=== PATIENT | male | born 1990 | race Caucasian/White ===

== ENCOUNTER 2020-04-11 17:48 | Emergency (ER) | payer OTHER, SELFPAY ==
[2020-04-11 18:13] VITALS: BP 122/87; PULSE 82; RESP 16; TEMP 37.4; O2SAT 99
[2020-04-11 18:39] VITALS: BP 122/87; PULSE 82; RESP 18; TEMP 37.4; O2SAT 99; BMI 23.7
--- NOTE | 2020-04-11 18:59 | ED.URI ---
HPI - URI/Sore Throat General Chief Complaint: Upper Respiratory Symptoms Stated Complaint: covid symptoms Time Seen by Provider: 04/11/20 18:55 Source: patient Mode of arrival: ambulatory Limitations: no limitations History of Present Illness HPI Narrative: 29 yo male with no sig past med hx c/o a couple weeks of headaches and nausea, 2 days of n/v, body sweats, sob, dizziness. denies fever, cough, chills. 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 Has not been eating much, too nauseus but is drinking Related Data Allergies Allergy/AdvReac Type Severity Reaction Status Date / Time No Known Allergies Allergy Verified 04/11/20 18:38 Review of Systems Review of Systems: Yes all other systems are reviewed and are negative [facility] Past Medical History Attestation statement: The following information was validated with the patient. Social History Social History (Updated 04/11/20 @ 19:02 by KUSH Patino) Smoking Status: Current every day smoker Packs Per Day: 1 Cigarettes Per Day: 20.0 Years Smoked: 11 Smoked in Last 30 Days: Yes Advance Directives: No Advance Directives Information Provided: No Physical Exam Vital Signs: Vital Signs: Vital Signs Temp Pulse Resp BP Pulse Ox 04/11/20 18:39 99.4 F 82 18 122/87 99 04/11/20 18:13 99.4 F 82 16 122/87 99 Body Mass Index 23.7 Const: General: cooperative, no acute distress and diaphoretic Nutritional Appearance: average body habitus Orientation/consciousness: patient oriented x3 Eyes: General: appearance normal, both eyes and all related structures Neck: Neck: Yes normal visual inspection, Yes full ROM, Yes no meningeal signs and Yes supple Resp: Effort & Inspection: normal respiratory effort and able to speak in complete sentences Auscultation: clear to auscultation bilaterally Cardio: Rate: regular rate Rhythm: regular rhythm Heart sounds: S1 normal heart sound present and S2 normal heart sound present Skin: General skin exam: no rashes or lesions noted Neuro: General: patient oriented x3 and no meningeal signs Extrem: General: Yes normal to inspection MDM - URI/Sore Throat Imaging Data Chest x-ray: Attestation: I personally reviewed and interpreted this imaging study as follows: My impression: Negative for acute disease. Radiologist's impression: No evidence for acute disease. Discharge Plan Discharge Clinical Impression: Acute viral syndrome Patient Disposition: Home, Self-Care Instructions: Dehydration (ED), COVID-19 (Coronavirus Disease 2019) (ED) Stand Alone Forms: Work/School Release
--- NOTE | 2020-04-11 19:04 | XR_ITS ---
EXAMINATION: CHEST 2 VIEWS CLINICAL INFORMATION: Shortness of breath. COMPARISON: None. TECHNIQUE: PA and lateral views of the chest were obtained. FINDINGS: The cardiac silhouette is not enlarged. The mediastinal and hilar contours are unremarkable. There are neither pleural effusions nor pneumothoraces. There are no consolidations. The osseous structures are unremarkable. XR/XR chest 2V IMPRESSION: No evidence for acute disease.
== END 2020-04-11 20:18 | disposition home or self-care (01) ==
PROVIDERS: Physician Assistant; Emergency Provider Emergency Medicine; PCP Family Medicine
DX: B34.9 Viral infection, unspecified (principal); J06.9 Acute upper respiratory infection, unspecified; R51.9 Headache, unspecified; F17.200 Nicotine dependence, unspecified, uncomplicated; Z71.6 Tobacco abuse counseling; Z20.828 Contact with and (suspected) exposure to other viral communicable diseases
CPT/HCPCS: 71046; 87635; 99284

== ENCOUNTER 2020-08-15 08:39 | Emergency (ER) | payer OTHER, SELFPAY ==
[2020-08-15] VITALS (10 sets, daily range): BP systolic 85–110; BP diastolic 40–67; PULSE 41–82; RESP 16; TEMP 36.8; O2SAT 98; BMI 23.7
--- NOTE | 2020-08-15 | ECG_ITS ---
Test Reason : ROBI Blood Pressure : / mmHG Vent. Rate : 064 BPM Atrial Rate : 064 BPM P-R Int : 114 ms QRS Dur : 090 ms QT Int : 472 ms P-R-T Axes : 029 -50 -14 degrees QTc Int : 486 ms Normal sinus rhythm Left anterior fascicular block Prolonged QT Abnormal ECG When compared with ECG of 15-AUG-2020 09:38, Incomplete right bundle branch block is no longer Present QT has lengthened Referred By: Kiara Heck Electronically Signed By:SHAHANA ANGELA MD
--- NOTE | ~2020-08-15 | XR_ITS ---
EXAMINATION: XR CHEST CLINICAL INFORMATION: Dyspnea on exertion COMPARISON: 04/11/2020 TECHNIQUE: Frontal view of the chest was obtained. FINDINGS: The cardiomediastinal silhouette is within normal limits. The lungs are well expanded. There is no focal consolidation, edema, or effusion. Mild bronchial wall thickening in the right lower lobe. No pneumothorax. No acute osseous abnormality. XR/XR chest 1V IMPRESSION: Mild bronchial wall thickening in the right lower lobe, which could reflect infectious or inflammatory process. No confluent airspace disease.
--- NOTE | 2020-08-15 09:11 | ECG_ITS ---
Test Reason : NEAR SYNCOPE Blood Pressure : / mmHG Vent. Rate : 060 BPM Atrial Rate : 060 BPM P-R Int : 114 ms QRS Dur : 090 ms QT Int : 406 ms P-R-T Axes : 051 -58 -11 degrees QTc Int : 406 ms Normal sinus rhythm with sinus arrhythmia Left anterior fascicular block Abnormal ECG When compared with ECG of 22-OCT-2019 19:32, No significant change was found Referred By: Kiara Heck Electronically Signed By:SHAHANA ANGELA MD
--- NOTE | 2020-08-15 09:25 | ED.SYNCOPE ---
HPI - Syncope General Chief Complaint: Syncope Stated Complaint: passing out frequently Time Seen by Provider: 08/15/20 09:10 Source: patient Mode of arrival: ambulatory Limitations: no limitations History of Present Illness HPI narrative: 30 y/o male with history of anxiety/depression, hx anemia requiring transfusion 10 years ago, hx substance abuse on Methadone presents to the ED with lightheadedness and feeling like he is going to pass out the last 2 mornings. He states that both mornings after coming inside from smoking a cigarette he had black tunnel vision and felt very faint. He did not actually lose consciousness. He states when he changes position too quickly he feels very lightheaded. He stayed on the couch most of the day yesterday because he wasn't feeling well. He didn't drink or eat much. He denies fever, chills, N/V/D, abdominal pain, headache, neck pain, chest pain. He is occasionally SOB with exertion. No cough, melena or BRBPR. He recently started back up on Lexapro 10 mg daily 4 days ago. MD complaint: felt faint and almost passed out Onset (ago): day(s) (1) -: minutes(s) Prodromal symptoms: vision changes, lightheaded, heart racing and shortness of breath Witnessed: Yes - by Bystander Context: during exertion, standing up and new medication Injuries sustained associated with event: none Current symptoms: lightheaded History: previous syncopal episode Treatments prior to arrival: none Related Data Allergies Allergy/AdvReac Type Severity Reaction Status Date / Time No Known Allergies Allergy Verified 04/11/20 18:38 Review of Systems Review of Systems: Constitutional: No Fever, No Chills ENT/Mouth: No sore throat, No Rhinorrhea, No Swallowing Difficulty Eyes: No Eye Pain, No Swelling, No Redness Cardiovascular: No Chest Pain, + SOB, No Orthopnea, No Edema Respiratory: No Cough, No Sputum, No Wheezing, No dyspnea Gastrointestinal: No Nausea, No Vomiting, No Diarrhea, No abdominal Pain, No Hematochezia, No Melena Genitourinary: No Dysuria, No Urinary Frequency, No Hematuria Musculoskeletal: No joint pain, No Myalgias Skin: No Skin Lesions, No rash Neuro: + Weakness, No Numbness, + Dizziness, No Headache Psych: + Anxiety/Panic, + Depression Heme/Lymph: No Bruising, No Lymphadenopathy Endocrine: No Polyuria, No Polydipsia [facility] Past Medical History Attestation statement: The following information was validated with the patient. Medical History (Updated 08/15/20 @ 15:59 by KUSH Lizama) Anemia Anxiety Depression Social History Social History (Updated 04/11/20 @ 19:02 by KUSH Patino) Alcohol intake: never Smoking Status: Current every day smoker Packs Per Day: 1 Cigarettes Per Day: 20.0 Years Smoked: 11 Use of substances other than those prescribed or required for medical reasons: No Advance Directives: Yes Advance Directives Information Provided: No Advance Directives on File: No Physical Exam Vital Signs: Vital Signs: Last Vital Signs Temp 98.2 F 08/15/20 08:44 Pulse 70 08/15/20 14:03 Resp 16 08/15/20 14:03 BP 98/56 L 08/15/20 13:54 Pulse Ox 98 08/15/20 12:10 Body Mass Index 23.7 Appearance: Alert. Oriented X3. No acute distress. Eyes: Pupils equal, round and reactive to light. ENT: Pharynx normal. Neck: Normal inspection. Neck supple. CVS: Normal heart rate and rhythm. Pulses normal. Respiratory: No respiratory distress. Breath sounds normal. Abdomen: Soft and nontender. +BS x4 Skin: Skin warm and dry. Normal skin color. Normal skin turgor. No rashes. Extremities: No lower extremity edema. Neuro: Oriented X 3. No motor deficit. No sensory deficit. Course Course Course Narrative: 30 y/o male presenting with pre-syncope and lightheadedness in the setting of known anxiety and restarting Lexapro 4 days ago. He appears well on exam. Non-focal. Concern for possible recurrent anemia although no signs of blood loss. Suspect anxiety a contributing factor. Will get labs, EKG, orthostatic VS. Reevaluation(s) Reevaluation #1: Orthostatic VS are positive with drop in BP to 85/49 from 97/54 and HR increase from 48 to 82 from laying to standing. Afebrile, doubt infectious etiology but will check lactic acid and blood cultures. Plan for repeat orthostatic VS after 2L IVF. Reevaluation #2: BP in the 80's after 2L NS, with HR as low as 38. He reports lightheadedness. Will atropine for symptomatic bradycardia. He denies recent drug use, not on clonidine at home. Aside from Lexapro he states he has been on Methadone for the last 5 years, stable dose of 86 mg for the last 1 year. His bradycardia and hypotension could be due to combination of methadone and lexapro. Will monitor closely and see if he responds to atropine. 3rd liter IVF ordered. Reevaluation #3: HR 70's after atropine. Orthostatic VS now negative but patient remains lightheaded and not feeling well. TT Dr. Forrester recommending low dose of midodrine and reassessing. May be able to be discharged home if his symptoms improve. 4pm: BP remains stable 90-100 systolic with HR 60-70's after low dose midodrine. His dizziness and lightheadedness have resolved. He would like to be discharged home. He is going to have his partner sampler pickup him and he will stay with her tonight. He states that if he has recurrent symptoms he knows he needs to return to the ER. He agrees to follow up with his PCP Wednesday and Cardiology next week. Expressed understanding to stop taking Lexapro. He clinically appears significantly improved and he is stable for discharge home. Consultations Consultation #1: Dr. Forrester Cardiology MDM - Syncope Differential Diagnosis Differential diagnosis: Likely syncope due to orthostatic hypotension, vasovagal syncope, complete atrioventricular block and dehydration Medical Records Attestation: I reviewed the patient's medical records. Lab Data Attestation: I reviewed the patient's lab results. Result diagrams: 08/15/20 09:24 08/15/20 09:24 Labs: Lab Results 08/15/20 08/15/20 08/15/20 Range/Units 09:24 09:24 09:24 WBC 7.3 (4.8-10.8) X10*3/uL RBC 5.14 (4.60-5.80) X10*6/uL Hgb 14.9 (14.0-18.0) g/dl Hct 44.7 (42-52) % MCV 87.0 (80-98) fL MCH 29.0 (27.0-33.0) pg MCHC 33.3 (31.0-36.0) g/dl RDW 12.5 (11.0-16.0) % Plt Count 308 (160-400) X10*3/uL MPV 9.1 L (9.4-12.4) fL Immature Gran % (Auto) 0.3 (0.0-0.4) % Neut % (Auto) 79.3 H (45-73) % Lymph % (Auto) 13.2 L (20-40) % [place] % (Auto) 6.6 (2-11) % Eos % (Auto) 0.3 (0-4) % Baso % (Auto) 0.3 (0-2) % Lymph # (Auto) 1.0 L (1.2-4.9) X10*3/uL [place] # (Auto) 0.5 (0.1-1.2) X10*3/uL Eos # (Auto) 0.0 (0.0-0.4) X10*3/uL Baso # (Auto) 0.0 (0.0-0.2) X10*3/uL Abs Immat Gran (auto) 0.02 (0.00-0.03) X10*3/uL Absolute Neuts (auto) 5.8 (2.0-8.3) X10*3/uL Absolute Nucleated RBC 0.000 (0.0-0.012) X10*3/uL Nucleated RBC % (auto) 0.0 (0.0-0.2) /100WBC Hold Blue Top Sodium 138 (135-145) mmol/L Potassium 4.1 (3.3-5.1) mmol/L Chloride 103 (96-108) mmol/L Carbon Dioxide 24 (22-29) mmol/L Anion Gap 15 (12-20) BUN 20 H (9-16) mg/dL Creatinine 1.25 (0.5-1.4) mg/dL Estim Creat Clear Calc 94.8 Estimated GFR > 60 Random Glucose 108 (60-115) mg/dL Lactic Acid (0.5-2.0) mmol/L Calcium 8.9 (8.4-10.2) mg/dL Magnesium 2.0 (1.6-2.6) mg/dL Total Bilirubin 0.5 (0.0-1.0) mg/dL Direct Bilirubin 0.2 (0.0-0.5) mg/dL AST 18 (5-37) U/L ALT 35 (0-40) U/L Alkaline Phosphatase 101 (39-117) U/L Troponin I High Sens (<3.5-35.0) ng/L Total Protein 6.8 (6.5-8.0) g/dL Albumin 4.4 (3.5-5.0) g/dL Coronavirus (PCR) NEGATIVE (Negative) Influenza Type A (PCR) NEGATIVE (Negative) Influenza Type B (PCR) NEGATIVE (Negative) RSV RNA Qual (PCR) NEGATIVE (Negative) 08/15/20 08/15/20 08/15/20 Range/Units 09:24 09:24 10:21 WBC (4.8-10.8) X10*3/uL RBC (4.60-5.80) X10*6/uL Hgb (14.0-18.0) g/dl Hct (42-52) % MCV (80-98) fL MCH (27.0-33.0) pg MCHC (31.0-36.0) g/dl RDW (11.0-16.0) % Plt Count (160-400) X10*3/uL MPV (9.4-12.4) fL Immature Gran % (Auto) (0.0-0.4) % Neut % (Auto) (45-73) % Lymph % (Auto) (20-40) % [place] % (Auto) (2-11) % Eos % (Auto) (0-4) % Baso % (Auto) (0-2) % Lymph # (Auto) (1.2-4.9) X10*3/uL [place] # (Auto) (0.1-1.2) X10*3/uL Eos # (Auto) (0.0-0.4) X10*3/uL Baso # (Auto) (0.0-0.2) X10*3/uL Abs Immat Gran (auto) (0.00-0.03) X10*3/uL Absolute Neuts (auto) (2.0-8.3) X10*3/uL Absolute Nucleated RBC (0.0-0.012) X10*3/uL Nucleated RBC % (auto) (0.0-0.2) /100WBC Hold Blue Top SEE NOTE Sodium (135-145) mmol/L Potassium (3.3-5.1) mmol/L Chloride (96-108) mmol/L Carbon Dioxide (22-29) mmol/L Anion Gap (12-20) BUN (9-16) mg/dL Creatinine (0.5-1.4) mg/dL Estim Creat Clear Calc Estimated GFR Random Glucose (60-115) mg/dL Lactic Acid 0.8 (0.5-2.0) mmol/L Calcium (8.4-10.2) mg/dL Magnesium (1.6-2.6) mg/dL Total Bilirubin (0.0-1.0) mg/dL Direct Bilirubin (0.0-0.5) mg/dL AST (5-37) U/L ALT (0-40) U/L Alkaline Phosphatase (39-117) U/L Troponin I High Sens < 3.5 (<3.5-35.0) ng/L Total Protein (6.5-8.0) g/dL Albumin (3.5-5.0) g/dL Coronavirus (PCR) (Negative) Influenza Type A (PCR) (Negative) Influenza Type B (PCR) (Negative) RSV RNA Qual (PCR) (Negative) ECG Data Attestation: I personally reviewed and interpreted this ECG as follows: ECG interpretation date: 08/15/20 ECG interpretation time: 09:36 Interpretation: #1: normal sinus rhythm, HR 60 bpm, normal OR interval, normal QTc, t-wave inversion in lead III, artifact present. #2: done at 9:38 am when bradycardic - sinus bradycardia, HR 47 bpm, normal OR interval, normal QTC, #3 done at 12:24 s/p atropine 0.5 x2 - normal sinus rhythm, HR 64, QTc increased to 186 ms, normal OR interval. Critical Care Time Critical Care Time Critical Care Time: Yes Total Critical Care Time: 45 Attestation: I attest to critical care time spent caring for this patient with symptomatic bradycardia and hypotension requiring ACLS intervention & frequent bedside monitoring of hemodynamic status. Discharge Plan Discharge Clinical Impression: Orthostatic hypotension, Symptomatic bradycardia Patient Disposition: Home, Self-Care Instructions: Dehydration (ED), Hypotension (ED), Bradycardia (ED) Additional Instructions: Rest and stay hydrated. You were given two different medications in the ER to help improve your heart rates with good effect. If you have recurrent lightheadedness or dizziness or any other concerning symptom call 911 or come back to the ER for further evaluation. Follow up with the Video Tape Editor within 1 week. Stop taking Lexapro. Follow up with your doctor on Wednesday as scheduled. Prescriptions: Discontinued escitalopram oxalate 10 mg tablet 10 mg PO DAILY RF: 0 Referrals: Chris Forrester MD [Physician] - 2 days (symptomatic bradycardia, orthostatic hypotension) Stand Alone Forms: Work/School Release
--- NOTE | 2020-08-15 09:35 | ECG_ITS ---
Test Reason : BRADYCARDIA Blood Pressure : / mmHG Vent. Rate : 047 BPM Atrial Rate : 047 BPM P-R Int : 144 ms QRS Dur : 092 ms QT Int : 462 ms P-R-T Axes : 033 -53 -15 degrees QTc Int : 408 ms Sinus bradycardia Incomplete right bundle branch block Left anterior fascicular block Abnormal ECG When compared with ECG of 15-AUG-2020 09:21, No significant change was found Referred By: Kiara Heck Electronically Signed By:SHAHANA ANGELA MD
[2020-08-15 09:36] LABS: MANUAL DIFF FLAG NO
--- NOTE | 2020-08-15 09:40 | PC.NURSE ---
episode of bradycardia noted. additional ekg obtained per pa order. pa aware of hypotension. 1l bolus hung of ns.
[2020-08-15 09:41] LABS: Basophils Percent Auto 0.3 % (0-2); Eosinophils Percent Auto 0.3 % (0-4); Hematocrit 44.7 % (42-52); Hemoglobin 14.9 g/dl (14.0-18.0); Imm Gran Abs Auto 0.02 X10*3/uL (0.00-0.03); Imm Gran Pct Auto 0.3 % (0.0-0.4); Lymphocytes Percent Auto 13.2 % (20-40); Mean Corpuscular HGB Conc 33.3 g/dl (31.0-36.0); Mean Platelet Volume 9.1 fL (9.4-12.4); Monocytes Absolute Auto 0.5 X10*3/uL (0.1-1.2); Monocytes Percent Auto 6.6 % (2-11); Neutrophils Absolute Auto 5.8 X10*3/uL (2.0-8.3); Neutrophils Percent Auto 79.3 % (45-73); Platelet Count 308 X10*3/uL (160-400); Red Blood Count 5.14 X10*6/uL (4.60-5.80); Red Cell Distribution Width 12.5 % (11.0-16.0); White Blood Count 7.3 X10*3/uL (4.8-10.8)
[2020-08-15] MEDS: 0.9 % Sodium Chloride 1,000 ML 999 ML IVCONT ×3 (09:42→12:18)
[2020-08-15 10:06] LABS: Alanine Aminotransferase 35 U/L (0-40); Albumin Level 4.4 g/dL (3.5-5.0); Alkaline Phosphatase 101 U/L (39-117); Anion Gap 15 (12-20); Aspartate Amino Transferase 18 U/L (5-37); Bilirubin Direct 0.2 mg/dL (0.0-0.5); Bilirubin Total 0.5 mg/dL (0.0-1.0); Blood Urea Nitrogen 20 mg/dL (9-16); Calcium 8.9 mg/dL (8.4-10.2); Carbon Dioxide 24 mmol/L (22-29); Chloride 103 mmol/L (96-108); Creatinine Clr Calc Pharmacy 94.8; Estimated Glomerular Filt Rate > 60; Glucose Random 108 mg/dL (60-115); Potassium 4.1 mmol/L (3.3-5.1); Sodium 138 mmol/L (135-145); Total Protein 6.8 g/dL (6.5-8.0)
[2020-08-15 10:09] LABS: Troponin-I High Sensitivity < 3.5 ng/L (<3.5-35.0)
[2020-08-15 10:53] LABS: Influenza A PCR NEGATIVE (Negative); Influenza B PCR NEGATIVE (Negative); Resp Syncy Virus RNA Qual PCR NEGATIVE (Negative); SARS COV2 PCR INHOUSE NEGATIVE (Negative)
[2020-08-15 11:02] LABS: Lactic Acid 0.8 mmol/L (0.5-2.0)
--- NOTE | 2020-08-15 12:13 | PC.NURSE ---
epsiode of bradycardia into the high 30s. pa aware.
[2020-08-15] MEDS: Atropine Sulfate 1 MG/ML VIAL 0.5 MG IVPUSH (12:18)
--- NOTE | 2020-08-15 12:25 | PC.NURSE ---
pa at bedside for admin of atropine. after two doses pt hr in the high 60s. ekg obtained.
[2020-08-15] MEDS: Magnesium Sulfate/D5W 1 GM/100 ML PIGGYBACK IV (12:46)
[2020-08-15] MEDS: Midodrine HCl 2.5 MG TABLET PO (13:54)
--- NOTE | 2020-08-15 15:41 | PC.NURSE ---
plan to dc home and f/u with cardio
--- NOTE | 2020-08-16 09:01 | PM.EVENT ---
Event Note Date of Service: 08/16/20 Event Note: Patient was discharged before we could see him today. Initial plan was to admit the patient
== END 2020-08-15 16:15 | disposition home or self-care (01) ==
PROVIDERS: Physician Assistant; Emergency Provider Emergency Medicine; PCP Family Medicine
DX: I95.1 Orthostatic hypotension (principal); R00.1 Bradycardia, unspecified; E86.0 Dehydration; Z20.822 Contact with and (suspected) exposure to COVID-19; F11.20 Opioid dependence, uncomplicated; D64.9 Anemia, unspecified; F41.9 Anxiety disorder, unspecified; F17.210 Nicotine dependence, cigarettes, uncomplicated
CPT/HCPCS: 0241U; 36415; 71045; 80048; 80076; 83605; 83735; 84484; 85025; 87040; 93005; 96361; 96365; 96374; 99285; J0461; J3475

== ENCOUNTER → 2020-08-27 11:33 | Outpatient (BNVA) | payer OTHER, SELFPAY | PROVIDERS: PCP Family Medicine; Visit Provider Nurse Practitioner Family | DX: R42 Dizziness and giddiness (principal); R00.1 Bradycardia, unspecified; F17.200 Nicotine dependence, unspecified, uncomplicated; Z71.6 Tobacco abuse counseling; Z79.899 Other long term (current) drug therapy | CPT/HCPCS: 99202 ==

== ENCOUNTER → 2020-09-18 13:30 | Outpatient (REF) | payer OTHER, SELFPAY ==
--- NOTE | 2020-09-18 14:00 | ECG_ITS ---
Hook-up date: 2020-09-18 13:47:00 Duration: 47:55:00 Test Indications: r01., r00.1 Medications: 47189 QRS complexes 11 Ventricular ectopics which represent <1 % of total QRS comp. 1 Supraventricular ectopics which represent <1 % of total QRS comp. * Paced QRS complexs which represent % of total QRS comp. VENTRICULAR ECTOPY 11 Isolated 0 Bigeminal Cycles 0 Couplets 0 Runs 0 Beats in Runs * Beats LONGEST at * BPM at :: -- * Beats FASTEST at * BPM at :: -- SUPRAVENTRICULAR ECTOPY 1 Isolated 0 Couplets 0 Runs 0 Beats in Runs * Beats LONGEST at * BPM at :: -- * Beats FASTEST at * BPM at :: -- HEART RATES 36 MIN at 02:34:17 2020-09-19 71 AVG 174 MAX at 10:33:02 2020-09-19 LONGEST RR 1.8640 secs at 02:36:23 2020-09-19 S-T LEVELS Channel 1 - 128 mm at 13:47:00 2020-09-18 - 128 mm at 13:47:00 2020-09-18 Channel 2 - 128 mm at 13:47:00 2020-09-18 - 128 mm at 13:47:00 2020-09-18 Channel 3 - 128 mm at 03:30:61 -- - 128 mm at 03:30:61 Underlying rhythm is sinus; Average ventricular rate 71/min; About 30% of the time, ventricular rate >100min; Very rare, isolated ventricular ectopy; No sustained arrhythmias; Some strips with inverted T waves - uncertain etiology; Patient did not return diary Referred By: Johana Maurer Overread By: EVAN MORRELL
== END ==
LOC: HO.CARD 13:30
PROVIDERS: Visit Provider Nurse Practitioner Family
DX: R01.0 Benign and innocent cardiac murmurs (principal); R00.1 Bradycardia, unspecified; R42 Dizziness and giddiness
CPT/HCPCS: 93225; 93226

== ENCOUNTER → 2020-10-02 14:57 | Outpatient (REF) | payer OTHER, SELFPAY ==
--- NOTE | 2020-10-02 15:12 | CA_ITS ---
Transthoracic Echocardiogram Patient (Last, First, Middle): Darius Ku E Gender: Male Date of : 1990 Age: 30 Procedure Date: 10/02/2020 Procedure Type: Transthoracic Echocardiogram Location: OP Height: 182.88 cm Weight: 77.11 kg BSA: 1.99 m2 Heart Rate: bpm BP: 110 / 56 mmHg Comb Machine Operator: BHARAT Referring MD: Johana Maurer CHANGE CONTROL SPECIALIST-C Symptoms: DIZZINESS GIDDINESS BRADYCARDIA Study Quality: Fair ECG Rhythm: Sinus Conclusions: - The left ventricular systolic function is normal. The visually estimated ejection fraction is between 55-60%. - No obvious valvular pathology seen on this study. Findings Left Ventricle Normal left ventricular cavity size. There is normal left ventricular wall thickness. The left ventricular systolic function is normal. The visually estimated ejection fraction is between 55-60%. There is no evidence of regional wall motion abnormalities. Diastolic function is normal for age. Right Ventricle Normal right ventricular cavity size and systolic function. Atria Both atria are normal in size. Aortic Valve There is a normal trileaflet aortic valve. There is no aortic valve stenosis. There is no aortic valve regurgitation. Mitral Valve The mitral valve appears normal. There is no mitral valve regurgitation. There is no mitral valve stenosis. Pulmonic Valve The pulmonic valve was not well visualized. Tricuspid Valve Normal tricuspid valve structure. There is trace tricuspid valve regurgitation. The pulmonary artery systolic pressure is normal. Great Vessels The aortic annulus, sinuses of valsalva, and asc aorta are normal in size. Venous The inferior vena cava is normal in size and collapses greater than 50% with inspiration. Pericardium/Pleural There is no evidence of pericardial effusion. Prior Study Comparison No prior study available for comparison. Recommendations, Care & Conclusions No obvious valvular pathology seen on this study. Measurements 2D Linear Measurements IVSd: 0.87 0.6-0.9/0.6-1.0 cm LVIDd: 4.95 3.9-5.3/4.2-5.9 cm LVIDd Index: 2.49 2.4-3.2/2.2-3.1 cm/m2 LVIDs: 3.20 2.0-3.6 cm LVPWd: 0.91 0.7-1.1 cm Ao Root: 3.40 2.1-3.5 cm LA Diam: 3.20 2.7-3.8/3.0-4.0 cm LAIDs Index: 1.61 1.5-2.3 cm/m2 LV Mass: 190.73 67-162/88-224 g LV Mass Index: 95.85 43-95/49-115 g/m2 LVOT Diam: 2.00 3.0+(-)1.3 cm 2D Systolic Function EF 4C: 56.20 >55% EF 2C: 65.40 >55% EF BiP: 60.60 >55% Mitral Valve MV Pk E: 0.53 MV PK A: 0.32 MV Decel Time: 512.00 E/A: 1.70 E'Lateral: 13.40 E'Medial: 9.28 E/E' Med: 5.80 E/E' Lat: 4.00 PHT: 150.00 MVA PHT: 1.47 Decel [place]: 1.04 Aortic Valve AoV Pk Garret: 1.12 AoV Mn Garret: 0.78 AoV VTI: 0.23 AoV Pk Grad: 5.00 Aov Mn Grad: 3.00 GALLO Cont.VTI: 2.88 LVOT LVOT Pk Garret: 1.05 LVOT Mn Garret: 0.68 LVOT VTI: 0.21 LVOT Pk Grad: 4.00 LVOT Mn Grad: 2.00 LVOT Diam: 2.00 LVOT Area: 3.14 Diastolic Function MV Pk E: 0.53 MV Pk A: 0.32 E/A: 1.70 E'Medial: 9.28 E/E' Med: 5.80 E' Laterial: 13.40 E/E' Lat: 4.00 Tricuspid Valve TR Pk Garret: 2.25 TR Pk Grad: 20.00 RA Press: 3.00 RVSP: 23.00 Great Vessels Aorta Ao Root-2D: 3.40 2.0-3.7 cm Ao Asc: 3.30 2.1-3.4 cm Updated in Other Vendor System with Status of Final Myron Adkins MD electronically signed on 10/03/2020 4:58:21 PM with status of Final
== END ==
LOC: HO.CARD 14:57
PROVIDERS: PCP Family Medicine; Visit Provider Nurse Practitioner Family
DX: R00.1 Bradycardia, unspecified (principal); R42 Dizziness and giddiness
CPT/HCPCS: 93306

== ENCOUNTER → 2020-10-08 10:02 | Outpatient (BNVA) | payer OTHER, SELFPAY | PROVIDERS: PCP Family Medicine; Visit Provider Nurse Practitioner Family | DX: R42 Dizziness and giddiness (principal); R00.1 Bradycardia, unspecified | CPT/HCPCS: 99212 ==

== ENCOUNTER → 2020-11-01 08:43 | Outpatient (BNVA) | payer OTHER, SELFPAY | PROVIDERS: PCP Family Medicine; Visit Provider Nurse Practitioner Family ==

== ENCOUNTER → 2020-12-02 14:02 | Outpatient (REF) | payer OTHER, SELFPAY ==
--- NOTE | 2020-12-02 14:10 | HM_ITS ---
REQUESTING PROVIDER: Johana Maurer NP INDICATION FOR THE TEST: Dizziness and bradycardia. INTERPRETATION: Patient was hooked up to cardiac event monitor from 12/02/2020 to 01/01/2021 for a total period of 30 days. The patient had baseline heart rate varying from 39 beats per minute to 130 beats per minute sinus rhythm. There were rare isolated PACs noted. The patient reported multiple events. Symptoms of shortness of breath and dizziness correlated either with sinus rhythm or sinus tachycardia. The patient 1 episode of dizziness correlated with sinus bradycardia at 52 beats per minute. The patient had other symptoms of racing and fluttering correlated with sinus tachycardia. There were no significant arrhythmias noted. CONCLUSION: 1. Baseline normal sinus rhythm with no significant arrhythmias. 2. Patient reported symptoms correlated with either sinus rhythm or sinus tachycardia. Chris Forrester MD NRS/MODL / [id number]
== END ==
LOC: HO.CARD 14:02
PROVIDERS: Visit Provider Nurse Practitioner Family
DX: R00.1 Bradycardia, unspecified (principal); R42 Dizziness and giddiness; R55 Syncope and collapse
CPT/HCPCS: 93270

== ENCOUNTER 2020-12-04 14:59 | Inpatient (IN) | payer OTHER, SELFPAY ==
[2020-12-04] VITALS (8 sets, daily range): BP systolic 71–161; BP diastolic 42–94; PULSE 35–94; RESP 10–19; TEMP 36.6–36.7; O2SAT 98–100; BMI 22.4
--- NOTE | ~2020-12-04 | XR_ITS ---
EXAMINATION: XR CHEST CLINICAL INFORMATION: Bradycardia COMPARISON: Chest 08/15/2020 TECHNIQUE: Frontal view of the chest was obtained. FINDINGS: No significant abnormality is noted involving the heart, lungs, mediastinum, bony thorax or soft tissues. XR/XR chest 1V IMPRESSION: Unremarkable chest exam.
--- NOTE | 2020-12-04 15:11 | ECG_ITS ---
Test Reason : CP Blood Pressure : / mmHG Vent. Rate : 038 BPM Atrial Rate : 038 BPM P-R Int : 144 ms QRS Dur : 098 ms QT Int : 460 ms P-R-T Axes : 049 -55 -08 degrees QTc Int : 365 ms Marked sinus bradycardia Left anterior fascicular block Nonspecific T wave abnormality Abnormal ECG When compared with ECG of 15-AUG-2020 12:24, Vent. rate has decreased BY 26 BPM QT has shortened Referred By: Kavita Clark Electronically Signed By:EVAN MORRELL
[2020-12-04] MEDS: Acetaminophen 325 MG TABLET 650 MG PO (15:46)
[2020-12-04] MEDS: 0.9 % Sodium Chloride 1,000 ML 999 ML IVCONT ×3 (15:46→17:51)
[2020-12-04] MEDS: Meclizine HCl 25 MG TABLET PO (15:47)
--- NOTE | 2020-12-04 15:54 | ED.ARRPALP ---
HPI - Arrhythmia/Palpitations General Chief Complaint: Arrhythmia/Palpitations Stated Complaint: chest pain Time Seen by Provider: 12/04/20 15:03 Source: patient Mode of arrival: ambulatory History of Present Illness HPI narrative: 30-year-old male with a past medical history of substance abuse now on methadone, anemia, anxiety, bradycardia, depression, orthostatic dizziness on Midodrine, presenting to the ED complaining positional dizziness, lightheadedness, generalized fatigue, mild headache x3 days. Admits to similar symptoms in the past with his bradycardia, reports compliance with his medications. Reports decreased p.o. intake, chest pain, and shortness of breath. States symptoms occur when going from sitting/lying to standing. Denies fever, chills, visual loss, abdominal pain, vomiting, diarrhea, LE edema, recent travel, sick contacts Related Data Home Medications Medication Instructions Recorded Confirmed methadone 10 mg/5 mL oral solution 86 mg PO DAILY ml 08/27/20 12/04/20 midodrine 2.5 mg PO TIDWM 12/04/20 12/04/20 Previous Rx's Medication Instructions Recorded blood pressure monitor #1 ea 11/01/20 Allergies Allergy/AdvReac Type Severity Reaction Status Date / Time No Known Allergies Allergy Verified 11/01/20 08:47 Review of Systems Review of Systems: Constitutional: No Fever, No Chills, + Fatigue, No Malaise ENT/Mouth: No Ear Pain, No Nasal Congestion, No sore throat Eyes: No Eye Pain, No Swelling, No Vision Changes Cardiovascular: + Chest Pain, + SOB, No Dyspnea on Exertion, +Palpitations Respiratory: No Cough, No Dyspnea Gastrointestinal: No Nausea, No Vomiting, No Diarrhea, No Constipation, No Abdominal pain Genitourinary: No Dysuria, No Urinary Frequency, No Hematuria Musculoskeletal: No joint pain, No Myalgias, No Joint Swelling Skin: No Skin Lesions, No rash Neuro: + Weakness, No Numbness, No Paresthesias, No Loss of Consciousness, + Lightheadedness, + Dizziness, + Headache Yes all other systems are reviewed and are negative Neurologic: Denies Abnormal speech present [facility] Past Medical History Attestation statement: The following information was validated with the patient. Medical History Anemia Anxiety Bradycardia Depression Orthostatic dizziness Family History Family History Father Afib Social History Social History Alcohol intake: never Cigarette Packs Per Day: 1 Cigarettes Per Day: 20.0 Years Smoked: 11 Advance Directives: No Advance Directives Information Provided: Yes Physical Exam Vital Signs: Vital Signs: Last Vital Signs Temp 97.8 F 12/04/20 18:19 Pulse 40 L 12/04/20 18:19 Resp 19 12/04/20 18:19 BP 109/68 12/04/20 18:19 Pulse Ox 99 12/04/20 18:19 Body Mass Index 22.4 Const: General: cooperative, healthy appearing and no acute distress Orientation/consciousness: patient oriented x3 Limitations: no limitations HENMT: Head: Yes normal to inspection Ears: hearing grossly normal bilaterally General nose exam: Normal external nose present Face and sinus: Yes normal facial exam Eyes: General: appearance normal, both eyes and all related structures EOM: EOMs intact bilaterally Neck: Neck: Yes normal visual inspection and Yes no meningeal signs Resp: Effort & Inspection: normal respiratory effort Auscultation: clear to auscultation bilaterally, no rales, no rhonchi and no wheezes Cardio: Rate: bradycardic Rhythm: regular rhythm Heart sounds: S1 normal heart sound present and S2 normal heart sound present GI: Inspection: Yes normal to inspection Palpation (GI): Soft to palpation, nontender, no guarding and not rigid Skin: Rashes: no rashes Wounds: no wounds Neuro: General: patient oriented x3, tone normal, moves all extremities, no meningeal signs, no focal motor deficits and CN's II-XI intact bilaterally Cognition (Neuro): normal cognition Speech: No Abnormal speech present Motor exam (neuro): 5/5 motor strength present throughout, Pronator motor function not present and no tremor noted Coordination: [id number] test normal and Romberg test negative Extrem: General: Yes normal to inspection, Yes no pedal edema and Yes no calf tenderness Course Course Course Narrative: XR chest 1V IMPRESSION: Unremarkable chest exam. -[id number]--no leukocytosis, H&H stable, labs otherwise unremarkable, troponin negative, COVID-19 negative -orthostatic vital signs positive >> will give additional L of IVF and 5 mg p.o. Midodrine and re-evaluate -heart rate without improvement after IVF/midodrine, case discussed with cardiology Dr. Adkins, plan to admit. -patient admitted to hospitalist team -1999--patient's heart rate now consistently 34-35, 0.5 mg of Atropine ordered after speaking to Hospitalist MDM - Arrhythmia/Palpitations MDM Narrative Medical decision making narrative: 30-year-old male with a past medical history of substance abuse now on methadone, anemia, anxiety, bradycardia, depression, orthostatic dizziness on Midodrine, presenting to the ED complaining positional dizziness, lightheadedness, generalized fatigue, mild headache x3 days. Reports decreased p.o. intake, chest pain, and shortness of breath. On exam bradycardic, nontoxic appearing, lungs CTA, no focal neuro deficits. Per chart review patient with chronic sinus bradycardia, had transthoracic echo in 10/09 showing normal EF, and Holter monitor and 08/2020 without sustained arrhythmias. Concern for dehydration vs orthostasis vs metabolic abnormalities. Rule out infectious etiology. Plan: EKG, labs, CXR, UA, COVID-19 testing, 2L of IVF, orthostatic vital signs, reassess Medical Records Attestation: I reviewed the patient's medical records. Lab Data Attestation: I reviewed the patient's lab results. Result diagrams: 12/04/20 15:42 12/04/20 15:42 Labs: Lab Results 12/04/20 12/04/20 12/04/20 Range/Units 15:41 15:41 15:42 WBC 6.0 (4.8-10.8) X10*3/uL RBC 4.86 (4.60-5.80) X10*6/uL Hgb 13.9 L (14.0-18.0) g/dl Hct 41.3 L (42-52) % MCV 85.0 (80-98) fL MCH 28.6 (27.0-33.0) pg MCHC 33.7 (31.0-36.0) g/dl RDW 12.3 (11.0-16.0) % Plt Count 249 (160-400) X10*3/uL MPV 9.8 (9.4-12.4) fL Immature Gran % (Auto) 0.3 (0.0-0.4) % Neut % (Auto) 71.4 (45-73) % Lymph % (Auto) 20.0 (20-40) % [place] % (Auto) 7.7 (2-11) % Eos % (Auto) 0.3 (0-4) % Baso % (Auto) 0.3 (0-2) % Lymph # (Auto) 1.2 (1.2-4.9) X10*3/uL [place] # (Auto) 0.5 (0.1-1.2) X10*3/uL Eos # (Auto) 0.0 (0.0-0.4) X10*3/uL Baso # (Auto) 0.0 (0.0-0.2) X10*3/uL Abs Immat Gran (auto) 0.02 (0.00-0.03) X10*3/uL Absolute Neuts (auto) 4.3 (2.0-8.3) X10*3/uL Absolute Nucleated RBC 0.000 (0.0-0.012) X10*3/uL Nucleated RBC % (auto) 0.0 (0.0-0.2) /100WBC Hold Blue Top Sodium (135-145) mmol/L Potassium (3.3-5.1) mmol/L Chloride (96-108) mmol/L Carbon Dioxide (22-29) mmol/L Anion Gap (12-20) BUN (9-16) mg/dL Creatinine (0.5-1.4) mg/dL Estim Creat Clear Calc Estimated GFR Random Glucose (60-115) mg/dL Calcium (8.4-10.2) mg/dL Magnesium (1.6-2.6) mg/dL Total Bilirubin (0.0-1.0) mg/dL Direct Bilirubin (0.0-0.5) mg/dL AST (5-37) U/L ALT (0-40) U/L Alkaline Phosphatase (39-117) U/L Troponin I High Sens < 3.5 (<3.5-35.0) ng/L Total Protein (6.5-8.0) g/dL Albumin (3.5-5.0) g/dL Urine Color Urine Appearance Urine pH (5.0-8.0) Ur Specific [place] (1.005-1.025) Urine Protein (NEG-TRACE) MG/DL Urine Glucose (UA) (NEG) MG/DL Urine Ketones (NEG) MG/DL Urine Blood (NEG) Urine Nitrite (NEG) Ur Leukocyte Esterase (NEG) COVID-19 (FLAVIO) Negative (Negative) COVID-19 Clin Com See Note 12/04/20 12/04/20 12/04/20 Range/Units 15:42 15:42 18:27 WBC (4.8-10.8) X10*3/uL RBC (4.60-5.80) X10*6/uL Hgb (14.0-18.0) g/dl Hct (42-52) % MCV (80-98) fL MCH (27.0-33.0) pg MCHC (31.0-36.0) g/dl RDW (11.0-16.0) % Plt Count (160-400) X10*3/uL MPV (9.4-12.4) fL Immature Gran % (Auto) (0.0-0.4) % Neut % (Auto) (45-73) % Lymph % (Auto) (20-40) % [place] % (Auto) (2-11) % Eos % (Auto) (0-4) % Baso % (Auto) (0-2) % Lymph # (Auto) (1.2-4.9) X10*3/uL [place] # (Auto) (0.1-1.2) X10*3/uL Eos # (Auto) (0.0-0.4) X10*3/uL Baso # (Auto) (0.0-0.2) X10*3/uL Abs Immat Gran (auto) (0.00-0.03) X10*3/uL Absolute Neuts (auto) (2.0-8.3) X10*3/uL Absolute Nucleated RBC (0.0-0.012) X10*3/uL Nucleated RBC % (auto) (0.0-0.2) /100WBC Hold Blue Top SEE NOTE Sodium 140 (135-145) mmol/L Potassium 4.2 (3.3-5.1) mmol/L Chloride 108 (96-108) mmol/L Carbon Dioxide 25 (22-29) mmol/L Anion Gap 11 L (12-20) BUN 9 D (9-16) mg/dL Creatinine 1.10 (0.5-1.4) mg/dL Estim Creat Clear Calc 104.1 Estimated GFR > 60 Random Glucose 107 (60-115) mg/dL Calcium 9.4 (8.4-10.2) mg/dL Magnesium 1.9 (1.6-2.6) mg/dL Total Bilirubin 0.6 (0.0-1.0) mg/dL Direct Bilirubin 0.2 (0.0-0.5) mg/dL AST 15 (5-37) U/L ALT 16 (0-40) U/L Alkaline Phosphatase 98 (39-117) U/L Troponin I High Sens (<3.5-35.0) ng/L Total Protein 6.3 L (6.5-8.0) g/dL Albumin 4.2 (3.5-5.0) g/dL Urine Color YELLOW Urine Appearance CLEAR Urine pH 6.5 (5.0-8.0) Ur Specific [place] <= 1.005 (1.005-1.025) Urine Protein NEG (NEG-TRACE) MG/DL Urine Glucose (UA) NEG (NEG) MG/DL Urine Ketones NEG (NEG) MG/DL Urine Blood NEG (NEG) Urine Nitrite NEG (NEG) Ur Leukocyte Esterase NEG (NEG) COVID-19 (FLAVIO) (Negative) COVID-19 Clin Com Discharge Plan Discharge Clinical Impression: Bradycardia, Orthostatic hypotension Patient Disposition: Admitted As Inpatient Prescriptions: No Action midodrine 2.5 mg tablet 2.5 mg PO TIDWM RF: 0 methadone 10 mg/5 mL solution 86 mg PO DAILY RF: 0 (DME) blood pressure monitor [Blood Pressure Kit] Kit See Rx Instructions .ROUTE .MEDSUPPLY Qty: 1 RF: 0
[2020-12-04 15:58] LABS: MANUAL DIFF FLAG NO
[2020-12-04 16:01] LABS: Basophils Percent Auto 0.3 % (0-2); Eosinophils Percent Auto 0.3 % (0-4); Hematocrit 41.3 % (42-52); Hemoglobin 13.9 g/dl (14.0-18.0); Imm Gran Abs Auto 0.02 X10*3/uL (0.00-0.03); Imm Gran Pct Auto 0.3 % (0.0-0.4); Lymphocytes Absolute Auto 1.2 X10*3/uL (1.2-4.9); Mean Corpuscular HGB Conc 33.7 g/dl (31.0-36.0); Mean Corpuscular Hemoglobin 28.6 pg (27.0-33.0); Mean Platelet Volume 9.8 fL (9.4-12.4); Monocytes Absolute Auto 0.5 X10*3/uL (0.1-1.2); Monocytes Percent Auto 7.7 % (2-11); Neutrophils Absolute Auto 4.3 X10*3/uL (2.0-8.3); Neutrophils Percent Auto 71.4 % (45-73); Platelet Count 249 X10*3/uL (160-400); Red Blood Count 4.86 X10*6/uL (4.60-5.80); Red Cell Distribution Width 12.3 % (11.0-16.0)
[2020-12-04 16:20] LABS: COVID-19 Test Negative (Negative)
[2020-12-04 16:30] LABS: Alanine Aminotransferase 16 U/L (0-40); Albumin Level 4.2 g/dL (3.5-5.0); Alkaline Phosphatase 98 U/L (39-117); Anion Gap 11 (12-20); Aspartate Amino Transferase 15 U/L (5-37); Bilirubin Direct 0.2 mg/dL (0.0-0.5); Bilirubin Total 0.6 mg/dL (0.0-1.0); Blood Urea Nitrogen 9 mg/dL (9-16); Calcium 9.4 mg/dL (8.4-10.2); Carbon Dioxide 25 mmol/L (22-29); Chloride 108 mmol/L (96-108); Creatinine Clr Calc Pharmacy 104.1; Estimated Glomerular Filt Rate > 60; Glucose Random 107 mg/dL (60-115); Magnesium 1.9 mg/dL (1.6-2.6); Potassium 4.2 mmol/L (3.3-5.1); Sodium 140 mmol/L (135-145); Total Protein 6.3 g/dL (6.5-8.0)
[2020-12-04 16:33] LABS: Troponin-I High Sensitivity < 3.5 ng/L (<3.5-35.0)
[2020-12-04] MEDS: Midodrine HCl 5 MG TABLET PO (17:51)
[2020-12-04 18:33] LABS: Glucose Urine UA NEG (NEG); Leukocyte Esterase Urine NEG (NEG); Nitrite Urine NEG (NEG); PH 6.5 (5.0-8.0); Specific Gravity - Urine <= 1.005 (1.005-1.025); Urine Blood NEG (NEG); Urine Ketones NEG (NEG); Urine Protein NEG (NEG-TRACE)
[2020-12-04 18:34] LABS: Appearance Urine CLEAR; Color Urine YELLOW
--- NOTE | 2020-12-04 19:10 | PHA.MEDREC ---
Pharmacy Consult ? Medication Reconciliation Pharmacy has completed the medication reconciliation.
[2020-12-04] MEDS: Atropine Sulfate 1 MG/10 ML SYRINGE 0.5 MG IVPUSH (20:14)
--- NOTE | 2020-12-04 20:18 | PC.NURSE ---
pt reports he was dx with chronic bradycardia in august 2020. his normal hr is in the 70's. he has been symptomatic with a hr in the 40 s. today is the first day his hr has been in the 30's.
--- NOTE | 2020-12-04 20:19 | P.HPHOSP_ITS ---
History of Present Illness Date of Service: 12/04/20 Chief Complaint: dizziness This is a 30-year-old male with past medical history of bradycardia, orthostatic dizziness and hypotension who presents to the hospital with complaints of postural dizziness, no heart rate, lightheadedness, and almost passing out. Elvis goncalves reports that the symptoms started in August and are usually intermittent, resolving spontaneously and coming about spontaneously. Patient is currently being worked up for his bradycardia by Cardiology with a 30 day Holter monitor. But reports his symptoms are so severe that he decided to come to the hospital. His symptoms started on Wednesday and have been progressively worsening. Patient also reports shortness of breath mostly with exertion, no cough, sputum production, no fever or chills, patient is also complaining of left-sided stabbing 5/10 nonradiating chest pain that is constant started at 2:00 p.m.. Not worsening with deep inspiration or movement. Denies any abdominal pain nausea or vomiting, no diarrhea constipation, no urinary symptoms and no lower extremity edema. On arrival to the ED hemodynamically stable with a temp of 98.1?, heart rate of 41, respiratory rate of 16, blood pressure of 104/72, satting 100% on room air. While in the ED patient's heart fluctuated between low 30s to mid 40s. He also had low blood pressure reading that improved with midodrine that he also takes at home for orthostatic hypotension Lab significant For WBC count of 6.0, hemoglobin of 13.9, otherwise unremarkable. Review of Systems Review of Systems: Yes all other systems are reviewed and are negative [facility] Medical History (Updated 12/05/20 @ 06:07 by Courtney Kimbrough MD) Anemia Anxiety Bradycardia Depression Orthostatic dizziness Family History Father Afib Social History Alcohol intake: never Cigarette Packs Per Day: 1 Cigarettes Per Day: 20.0 Years Smoked: 11 Advance Directives: No Advance Directives Information Provided: Yes service: No Current occupational status: employed Meds Allergies Allergy/AdvReac Type Severity Reaction Status Date / Time No Known Allergies Allergy Verified 11/01/20 08:47 Active Medications: Current Medications Generic Name Dose Route Start Last Admin Trade Name Freq PRN Reason Stop Dose Admin Acetaminophen 650 mg 12/04/20 20:08 Acetaminophen 325 Mg Tablet PO Q6H PRN Pain, Mild (Pain Scale 1-3) Docusate Sodium 100 mg 12/04/20 20:08 Docusate Sodium 100 Mg Capsule PO DAILY PRN Constipation Enoxaparin Sodium 40 mg 12/04/20 22:00 Enoxaparin Sodium 40 Mg/0.4 Ml Syringe SUBCUT Q24H [facility] Midodrine 2.5 mg 12/05/20 08:00 Midodrine Hcl 2.5 Mg Tablet PO TIDWM [facility] Non-Formulary Medication 86 mg 12/05/20 09:00 Methadone PO DAILY [facility] Ondansetron HCl 4 mg 12/04/20 20:08 Ondansetron Hcl 4 Mg/2 Ml Vial IVPUSH Q8H PRN Nausea and Vomiting Pharmacy Consult 1 each 12/04/20 18:29 Consult Rx Perform Med Rec MISCELLANE ONCE PRN Consult order Sodium Chloride 3 ml 12/05/20 00:00 0.9 % Sodium Chloride Flush 3 Ml Syringe IVFLUSH QSHIFT [facility] Home Medications Medication Instructions Recorded Confirmed Last Taken Type methadone 10 mg/5 mL oral solution 86 mg PO DAILY ml 08/27/20 12/04/20 12/04/20 History midodrine 2.5 mg PO TIDWM 12/04/20 12/04/20 12/04/20 History Physical Exam Vital Signs and Narrative: Vital Signs: Last Vital Signs Temp 97.8 F 12/04/20 18:19 Pulse 35 L 12/04/20 20:15 Resp 10 L 12/04/20 20:15 BP 118/76 12/04/20 20:15 Pulse Ox 100 12/04/20 20:15 Body Mass Index 22.4 Const: General: cooperative and no acute distress Orientati on/consciousness: patient oriented x3 Eyes: General: appearance normal, both eyes and all related structures Resp: Effort & Inspection: normal respiratory effort and able to speak in complete sentences Cardio: Rate: bradycardic Rhythm: regular rhythm GI: Palpation (GI): Soft to palpation Auscultation: normal bowel sounds Skin: General skin exam: no rashes or lesions noted Neuro: General: patient oriented x3 Cognition (Neuro): normal cognition Extrem: General: Yes normal to inspection and Yes no pedal edema Results Labs CBC and Chem 7: 12/04/20 15:42 12/04/20 15:42 Labs: Laboratory Results - last 24 hr 12/04/20 12/04/20 12/04/20 15:41 15:41 15:42 MCV 85.0 MCH 28.6 MCHC 33.7 RDW 12.3 Plt Count 249 MPV 9.8 Immature Gran % (Auto) 0.3 Neut % (Auto) 71.4 Lymph % (Auto) 20.0 [place] % (Auto) 7.7 Eos % (Auto) 0.3 Baso % (Auto) 0.3 Lymph # (Auto) 1.2 [place] # (Auto) 0.5 Eos # (Auto) 0.0 Baso # (Auto) 0.0 Abs Immat Gran (auto) 0.02 Absolute Neuts (auto) 4.3 Absolute Nucleated RBC 0.000 Nucleated RBC % (auto) 0.0 Hold Blue Top Anion Gap Estim Creat Clear Calc Estimated GFR Random Glucose Calcium Magnesium Total Bilirubin Direct Bilirubin AST ALT Alkaline Phosphatase Troponin I High Sens < 3.5 Total Protein Albumin Urine Color Urine Appearance Urine pH Ur Specific [place] Urine Protein Urine Glucose (UA) Urine Ketones Urine Blood Urine Nitrite Ur Leukocyte Esterase COVID-19 (FLAVIO) Negative COVID-19 Clin Com See Note 12/04/20 12/04/20 12/04/20 15:42 15:42 18:27 MCV MCH MCHC RDW Plt Count MPV Immature Gran % (Auto) Neut % (Auto) Lymph % (Auto) [place] % (Auto) Eos % (Auto) Baso % (Auto) Lymph # (Auto) [place] # (Auto) Eos # (Auto) Baso # (Auto) Abs Immat Gran (auto) Absolute Neuts (auto) Absolute Nucleated RBC Nucleated RBC % (auto) Hold Blue Top SEE NOTE Anion Gap 11 L Estim Creat Clear Calc 104.1 Estimated GFR > 60 Random Glucose 107 Calcium 9.4 Magnesium 1.9 Total Bilirubin 0.6 Direct Bilirubin 0.2 AST 15 ALT 16 Alkaline Phosphatase 98 Troponin I High Sens Total Protein 6.3 L Albumin 4.2 Urine Color YELLOW Urine Appearance CLEAR Urine pH 6.5 Ur Specific [place] <= 1.005 Urine Protein NEG Urine Glucose (UA) NEG Urine Ketones NEG Urine Blood NEG Urine Nitrite NEG Ur Leukocyte Esterase NEG COVID-19 (FLAVIO) COVID-19 Clin Com Imaging Radiologist's Impressions: Impressions Chest X-Ray 12/04/20 15:15 IMPRESSION: Unremarkable chest exam. Assessment and Plan (1) Pre-syncope: Status: Acute (2) Bradycardia: Status: Acute (3) Orthostatic hypotension: Status: Acute (4) Orthostatic dizziness: Status: Acute This is a 30-year-old male with history of orthostatic hypotension and bradycardia presents to the hospital with complaints of dizziness, presyncope, bradycardia # presyncopal episode - most likely secondary to bradycardia as well as orthostatic hypotension - given 1 dose of atropine in the ER with improvement of his heart rate to the 90s and blood pressure to the 160s SBP - will consult Cardiology - continue home midodrine # orthostatic hypotension - will start him on IV fluids - continue midodrine # bradycardia - unclear etiology - no heart block on EKG - will consult Cardiology # atypical chest pain - troponin negative, - EKG shows sinus bradycardia with no evidence of ACS - monitor DVT prophylaxis: Lovenox Quality Stroke Does the patient have a stroke diagnosis?: No VTE Prior VTE?: No VTE Risk Level:: Medical - moderate - high VTE Device Contraindication: Treatment Not Indicated VTE Drug Contraindication: N/A - Med Ordered
--- NOTE | 2020-12-04 20:22 | PC.NURSE ---
FOLLOWING 0.5 MG ATROPINE ADMINISTRATION IV, PT'S HR INCREASED SLOWLY TO MID 90'S NSR. BP INCREASED TO 161/94. PT'S LEFT SIDED CHEST PAIN AND DYSPNEA PRESENT SINCE ARRIVAL AT ER.
--- NOTE | 2020-12-04 20:46 | PC.NURSE ---
PT REQUESTING NICOTINE PATCH.
--- NOTE | 2020-12-04 21:10 | MHC.CM.PN ---
CM met with pt. Pt admitted and room pending. Pt lives with his sister. No DME, services or . 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 Pt has been in recovery and has been on methadone for past 5 years. No HCP. Reviewed with pt and he declines at this time. D/C plan is home without services. Patient's girlfriend to provide transportation home. CM to follow for d/c needs.
[2020-12-04] MEDS: Enoxaparin Sodium 40 MG/0.4 ML SYRINGE SUBCUT (22:33)
[2020-12-04] MEDS: Nicotine 21 MG PATCH.TD24 TRANSDERMA (22:34)
--- NOTE | 2020-12-04 22:34 | PC.NURSE ---
NICOTINE PATCH REQUESTED BY PATIENT, PULLED FROM [facility] 24 HOURS EARLY.
[2020-12-05] VITALS (10 sets, daily range): BP systolic 85–121; BP diastolic 52–72; PULSE 38–52; RESP 13–17; TEMP 36.1–36.8; O2SAT 97–100
--- NOTE | 2020-12-05 01:03 | PC.NURSE ---
PT'S HR 38 SINUS ROBI. HOSPITALIST NOTIFIED. PT SLEEPING AND BLOOD PRESSURE ABOVE 100 SYSTOLIC. PRN ORDERS FOR ATROPINE IF PT SYMPTOMATIC.
--- NOTE | 2020-12-05 03:10 | PC.NURSE ---
PT ASYMPTOMATIC OF CHEST DISCOMFORT AND DYSPNEA.
[2020-12-05 06:08] LABS: MANUAL DIFF FLAG NO
[2020-12-05 06:14] LABS: Basophils Percent Auto 0.5 % (0-2); Eosinophils Absolute Auto 0.1 X10*3/uL (0.0-0.4); Hematocrit 39.3 % (42-52); Hemoglobin 13.2 g/dl (14.0-18.0); Imm Gran Abs Auto 0.03 X10*3/uL (0.00-0.03); Imm Gran Pct Auto 0.5 % (0.0-0.4); Lymphocytes Absolute Auto 1.6 X10*3/uL (1.2-4.9); Lymphocytes Percent Auto 26.2 % (20-40); Mean Corpuscular HGB Conc 33.6 g/dl (31.0-36.0); Mean Corpuscular Hemoglobin 28.9 pg (27.0-33.0); Mean Corpuscular Volume 86.2 fL (80-98); Monocytes Absolute Auto 0.5 X10*3/uL (0.1-1.2); Monocytes Percent Auto 7.7 % (2-11); Neutrophils Absolute Auto 3.8 X10*3/uL (2.0-8.3); Neutrophils Percent Auto 64.1 % (45-73); Platelet Count 222 X10*3/uL (160-400); Red Blood Count 4.56 X10*6/uL (4.60-5.80); Red Cell Distribution Width 12.5 % (11.0-16.0)
--- NOTE | 2020-12-05 06:27 | PC.NURSE ---
PT REQUESTING THAT WE CALL AND VERIFY METHADONE, [facility]INIC [facility] [place] ON .
[2020-12-05 06:45] LABS: Anion Gap 10 (12-20); Blood Urea Nitrogen 10 mg/dL (9-16); Calcium 8.8 mg/dL (8.4-10.2); Carbon Dioxide 24 mmol/L (22-29); Chloride 112 mmol/L (96-108); Creatinine Clr Calc Pharmacy 101.4; Estimated Glomerular Filt Rate > 60; Glucose Random 91 mg/dL (60-115); Potassium 4.2 mmol/L (3.3-5.1); Sodium 142 mmol/L (135-145)
[2020-12-05] MEDS: Midodrine HCl 2.5 MG TABLET PO (08:47)
[2020-12-05] MEDS: Lactated Ringers 1,000 ML 100 ML IVCONT ×2 (08:51→19:49)
--- NOTE | 2020-12-05 10:42 | PM.CNCAR ---
History of Present Illness History of Present Illness Date of Service: 12/05/20 Consult reason: hypotension Chief complaint: chest pain Narrative: This is a cardiology consultation regarding low blood pressure as well as heart rate. He has a history of substance abuse and he is on methadone. He has been recently noted to have lightheadedness and presyncope and known to have orthostatic hypotension. Was given IV fluids. He was also having sinus bradycardia. At that time it appears that they stop the Lexapro. Recently he was also started on midodrine for low blood pressure. Now he states for the last couple of days not been feeling good. He has been having fleeting chest pains that seem very atypical for angina. Other symptoms like just not feeling well, lightheaded among others. He was evaluated in the ER and found to have sinus bradycardia as well as hypotension and hence he is being admitted. Otherwise no known coronary disease or cardiomyopathy or other cardiac concerns in the past. He is on methadone long-term. Review of Systems Review of Systems: Yes all other systems are reviewed and are negative Cardiovascular: Cardiovascular: Reports as per HPI, Reports no additional cardiovascular complaints, Denies acrocyanosis, Denies cool extremities, Denies painful fingertips, Reports chest pain, Denies diaphoresis, Denies syncope, Denies irregular heart rhythm, Denies claudication, Denies leg edema, Reports lightheadedness, Denies palpitations and Denies dyspnea Respiratory: Respiratory: Denies dyspnea Neurologic: Denies syncope Endocrine: Endocrine: Denies palpitations PMFSH Past Medical History Medical History Anemia Anxiety Bradycardia Depression Orthostatic dizziness Family History Family History Father Afib Social History Social History Household Members: Other Housing: House Do you presently have visiting nurse or other home services: No Alcohol intake: never Patient Tobacco Use Status: Current everyday Tobacco user Tobacco use type: Cigarette Cigarette Packs Per Day: 1 Cigarettes Per Day: 20.0 Years Smoked: 12 Smoked in Last 30 Days: Yes e-Cigarette/Vaping Use: Never Used Patient Interested in Nicotine Replacement: Yes (current patch on) Use of substances other than those prescribed or required for medical reasons: Yes Substance Use Type: Crack/Cocaine, Heroin, Opiates and Painkillers Substance Use Frequency: Daily Last Used Substance: Days (ago) Last Used Substance Other:: 2 years ago Currently Displaying Signs/Symptoms of Drug Intoxication Withdrawal: No Any prior treatment program specific to substance use: Yes Have you been hit, kicked, punched, or otherwise hurt by someone within the past year? If so, by whom?: No Do you feel safe in your current relationship?: Yes Is there a partner from a previous relationship who is making you feel unsafe now?: No Are you made to feel afraid or neglected: No Advance Directives: No Advance Directives Information Provided: Yes Do you have thoughts of harming others: None Do you have a plan to hurt others: No Plan Recently lost weight without trying: No Eating poorly because of decreased appetite: No Nutrition Risks: No Nutritional Risk Poor oral hygiene: No service: No Current occupational status: employed Meds Allergies Allergy/AdvReac Type Severity Reaction Status Date / Time No Known Allergies Allergy Verified 11/01/20 08:47 Active Medications: Current Medications Generic Name Dose Route Start Last Admin Trade Name Freq PRN Reason Stop Dose Admin Acetaminophen 650 mg 12/04/20 20:08 Acetaminophen 325 Mg Tablet PO Q6H PRN Pain, Mild (Pain Scale 1-3) Docusate Sodium 100 mg 12/04/20 20:08 Docusate Sodium 100 Mg Capsule PO DAILY PRN Constipation Enoxaparin Sodium 40 mg 12/04/20 22:00 12/04/20 22:33 Enoxaparin Sodium 40 Mg/0.4 Ml Syringe SUBCUT 40 mg Q24H GAIL Administration Lactated Ringer's 1,000 mls @ 100 mls/hr 12/05/20 06:15 12/05/20 08:51 Lr IVCONT 100 mls/hr .Q10H GAIL Administration Methadone HCl 90 mg 12/05/20 09:30 12/05/20 09:34 Methadone Hcl 1 Mg/0.1 Ml Oral.Conc PO 90 mg DAILY GAIL Administration Midodrine 2.5 mg 12/05/20 08:00 12/05/20 08:47 Midodrine Hcl 2.5 Mg Tablet PO 2.5 mg TIDWM GAIL Administration Nicotine 21 mg 12/05/20 22:00 12/04/20 22:34 Nicotine 21 Mg Patch.Td24 TRANSDERMA 21 mg DAILY@2200 [facility] Administration Ondansetron HCl 4 mg 12/04/20 20:08 Ondansetron Hcl 4 Mg/2 Ml Vial IVPUSH Q8H PRN Nausea and Vomiting Pharmacy Consult 1 each 12/04/20 18:29 Consult Rx Perform Med Rec MISCELLANE ONCE PRN Consult order Sodium Chloride 3 ml 12/05/20 00:00 12/05/20 10:18 0.9 % Sodium Chloride Flush 3 Ml Syringe IVFLUSH Not Given QSHIFT [facility] Home Medications Medication Instructions Recorded Confirmed Last Taken Type methadone 10 mg/5 mL oral solution 86 mg PO DAILY ml 08/27/20 12/04/20 12/04/20 History midodrine 2.5 mg PO TIDWM 12/04/20 12/04/20 12/04/20 History Physical Exam Vital Signs: Vital Signs: Last Vital Signs Temp 97.2 F 12/05/20 09:51 Pulse 49 L 12/05/20 09:51 Resp 16 12/05/20 09:51 BP 121/72 12/05/20 09:51 Pulse Ox 100 12/05/20 09:51 Body Mass Index 22.4 Const: General: cooperative and no acute distress HENMT: Other: Unremarkable Neck: Neck: Yes normal visual inspection Chest: Chest palpation & inspection: normal inspection of the chest Resp: Auscultation: clear to auscultation bilaterally, no crackles and no wheezes Cardio: Jugular venous distension: no JVD Palpation: normal PMI Heart sounds: S1 normal heart sound present, S2 normal heart sound present, no gallops, no murmurs and no rubs GI: Palpation (GI): Soft to palpation Back/Spine/Pelvis: Other: unremarkable Skin: General skin exam: no rashes or lesions noted Neuro: Cranial nerves: Yes Other cranial nerve findings present Extrem: General: Yes no clubbing, cyanosis or edema Psych: Mental Status: other Results Labs and Meds Result diagrams: 12/05/20 05:52 12/05/20 05:52 Lab results: Laboratory Results - last 24 hr 12/04/20 12/04/20 12/04/20 15:41 15:41 15:42 WBC 6.0 RBC 4.86 Hgb 13.9 L Hct 41.3 L MCV 85.0 MCH 28.6 MCHC 33.7 RDW 12.3 Plt Count 249 MPV 9.8 Immature Gran % (Auto) 0.3 Neut % (Auto) 71.4 Lymph % (Auto) 20.0 [place] % (Auto) 7.7 Eos % (Auto) 0.3 Baso % (Auto) 0.3 Lymph # (Auto) 1.2 [place] # (Auto) 0.5 Eos # (Auto) 0.0 Baso # (Auto) 0.0 Abs Immat Gran (auto) 0.02 Absolute Neuts (auto) 4.3 Absolute Nucleated RBC 0.000 Nucleated RBC % (auto) 0.0 Hold Blue Top Sodium Potassium Chloride Carbon Dioxide Anion Gap BUN Creatinine Estim Creat Clear Calc Estimated GFR Random Glucose Calcium Magnesium Total Bilirubin Direct Bilirubin AST ALT Alkaline Phosphatase Troponin I High Sens < 3.5 Total Protein Albumin Urine Color Urine Appearance Urine pH Ur Specific [place]osit Urine Protein Urine Glucose (UA) Urine Ketones Urine Blood Urine Nitrite Ur Leukocyte Esterase COVID-19 (FLAVIO) Negative COVID-19 [place] Com See Note 12/04/20 12/04/20 12/04/20 15:42 15:42 18:27 WBC RBC Hgb Hct MCV MCH MCHC RDW Plt Count MPV Immature Gran % (Auto) Neut % (Auto) Lymph % (Auto) [place] % (Auto) Eos % (Auto) Baso % (Auto) Lymph # (Auto) [place] # (Auto) Eos # (Auto) Baso # (Auto) Abs Immat Gran (auto) Absolute Neuts (auto) Absolute Nucleated RBC Nucleated RBC % (auto) Hold Blue Top SEE NOTE Sodium 140 Potassium 4.2 Chloride 108 Carbon Dioxide 25 Anion Gap 11 L BUN 9 D Creatinine 1.10 Estim Creat Clear Calc 104.1 Estimated GFR > 60 Random Glucose 107 Calcium 9.4 Magnesium 1.9 Total Bilirubin 0.6 Direct Bilirubin 0.2 AST 15 ALT 16 Alkaline Phosphatase 98 Troponin I High Sens Total Protein 6.3 L Albumin 4.2 Urine Color YELLOW Urine Appearance CLEAR Urine pH 6.5 Ur Specific [place] <= 1.005 Urine Protein NEG Urine Glucose (UA) NEG Urine Ketones NEG Urine Blood NEG Urine Nitrite NEG Ur Leukocyte Esterase NEG COVID-19 (FLAVIO) COVID-19 Clin Com 12/05/20 12/05/20 05:52 05:52 WBC 6.0 RBC 4.56 L Hgb 13.2 L Hct 39.3 L MCV 86.2 MCH 28.9 MCHC 33.6 RDW 12.5 Plt Count 222 MPV 10.0 Immature Gran % (Auto) 0.5 H Neut % (Auto) 64.1 Lymph % (Auto) 26.2 [place] % (Auto) 7.7 Eos % (Auto) 1.0 Baso % (Auto) 0.5 Lymph # (Auto) 1.6 [place] # (Auto) 0.5 Eos # (Auto) 0.1 Baso # (Auto) 0.0 Abs Immat Gran (auto) 0.03 Absolute Neuts (auto) 3.8 Absolute Nucleated RBC 0.000 Nucleated RBC % (auto) 0.0 Hold Blue Top Sodium 142 Potassium 4.2 Chloride 112 H Carbon Dioxide 24 Anion Gap 10 L BUN 10 Creatinine 1.13 Estim Creat Clear Calc 101.4 Estimated GFR > 60 Random Glucose 91 Calcium 8.8 D Magnesium Total Bilirubin Direct Bilirubin AST ALT Alkaline Phosphatase Troponin I High Sens Total Protein Albumin Urine Color Urine Appearance Urine pH Ur Specific [place] Urine Protein Urine Glucose (UA) Urine Ketones Urine Blood Urine Nitrite Ur Leukocyte Esterase COVID-19 (FLAVIO) COVID-19 Clin Com ECG Attestation: I personally reviewed and interpreted this ECG as follows: Interpretation: Admission EKG shows sinus bradycardia at 38/Min; leftward axis; no significant findings to suggest any ischemia. No evidence of any QT prolongation. Imaging Radiologist's impression: Impressions Chest X-Ray 12/04/20 15:15 IMPRESSION: Unremarkable chest exam. Assessment and Plan (1) Pre-syncope: Status: Acute (2) Orthostatic hypotension: Status: Acute (3) Bradycardia: Status: Acute BUN is 10. Potassium 4.2. High sensitivity troponin less than 3.5. Potassium 4.2. Hemoglobin 13.2. White cells 6. Platelets 222. Tilt-table test does show orthostatic hypotension. Overall, resting bradycardia and hypotension possibly from the methadone that he has been taking long-term. Will hydrate him why he is here. Recently started midodrine 2.5 mg t.i.d. and we can increase that to 10 mg t.i.d.. Otherwise with regard to the heart rate he is in the 40s but overnight went into the 30s. Currently about 40s and goes into the 50s. Unless there is clear evidence of any chronotropic incompetence and symptoms, we will hold off on any pacemaker at this time. Will follow up with you. Procedures Date of Service Date of Service: 12/05/20
[2020-12-05] MEDS: Midodrine HCl 10 MG TABLET PO ×2 (12:30→16:00)
--- NOTE | 2020-12-05 13:21 | P.PNIM_ITS ---
Subjective Subjective Date of Service: 12/05/20 Interval History: Seen and examined this morning in follow-up for bradycardia, hypotension. Reports feeling much better than on admission, no dizziness at this time Denies chest pain, shortness of breath Frustrated about recurrence of symptoms Review of Systems Review of Systems: Yes all other systems are reviewed and are negative Constitutional Constitutional: Denies chills and Denies fever(s) Cardiovascular Cardiovascular: Denies chest pain Respiratory Respiratory: Denies cough Gastrointestinal Gastrointestinal: Denies abdominal pain Physical Exam Vital Signs: Vital Signs: Last Vital Signs Temp 97 F 12/05/20 11:27 Pulse 43 L 12/05/20 12:30 Resp 16 12/05/20 11:27 BP 103/57 L 12/05/20 12:30 Pulse Ox 97 12/05/20 11:27 Body Mass Index 22.4 Const: General: comfortable, no acute distress, alert and awake Nutritional Appearance: well nourished Orientation/consciousness: patient oriented x3 HENMT: Head: Yes normocephalic and Yes atraumatic Eyes: Sclerae: sclerae normal Chest: Chest palpation & inspection: normal inspection of the chest Resp: Effort & Inspection: normal respiratory effort and no respiratory d istress Auscultation: clear to auscultation bilaterally Cardio: Rate: bradycardic Rhythm: regular rhythm GI: Palpation (GI): Soft to palpation and nontender Neuro: General: patient oriented x3 Cranial nerves: Yes CN's II-XII intact bilaterally and Yes Bilaterally intact EOM present Objective Data Current Medications Generic Name Dose Route Start Last Admin Trade Name Freq PRN Reason Stop Dose Admin Acetaminophen 650 mg 12/04/20 20:08 Acetaminophen 325 Mg Tablet PO Q6H PRN Pain, Mild (Pain Scale 1-3) Docusate Sodium 100 mg 12/04/20 20:08 Docusate Sodium 100 Mg Capsule PO DAILY PRN Constipation Enoxaparin Sodium 40 mg 12/04/20 22:00 12/04/20 22:33 Enoxaparin Sodium 40 Mg/0.4 Ml Syringe SUBCUT 40 mg Q24H GAIL Administration Lactated Ringer's 1,000 mls @ 100 mls/hr 12/05/20 06:15 12/05/20 08:51 Lr IVCONT 100 mls/hr .Q10H GAIL Administration Methadone HCl 90 mg 12/05/20 09:30 12/05/20 09:34 Methadone Hcl 1 Mg/0.1 Ml Oral.Conc PO 90 mg DAILY GAIL Administration Midodrine 10 mg 12/05/20 12:00 12/05/20 12:30 Midodrine Hcl 10 Mg Tablet PO 10 mg TIDWM GAIL Administration Nicotine 21 mg 12/05/20 22:00 12/04/20 22:34 Nicotine 21 Mg Patch.Td24 TRANSDERMA 21 mg DAILY@2200 [facility] Administration Ondansetron HCl 4 mg 12/04/20 20:08 Ondansetron Hcl 4 Mg/2 Ml Vial IVPUSH Q8H PRN Nausea and Vomiting Pharmacy Consult 1 each 12/04/20 18:29 Consult Rx Perform Med Rec MISCELLANE ONCE PRN Consult order Sodium Chloride 3 ml 12/05/20 00:00 12/05/20 10:18 0.9 % Sodium Chloride Flush 3 Ml Syringe IVFLUSH Not Given QSHIFT [facility] Labs CBC & Chem 7: 12/05/20 05:52 12/05/20 05:52 Labs: Laboratory Results - last 24 hr 12/04/20 12/04/20 12/04/20 15:41 15:41 15:42 WBC 6.0 RBC 4.86 Hgb 13.9 L Hct 41.3 L MCV 85.0 MCH 28.6 MCHC 33.7 RDW 12.3 Plt Count 249 MPV 9.8 Immature Gran % (Auto) 0.3 Neut % (Auto) 71.4 Lymph % (Auto) 20.0 [place] % (Auto) 7.7 Eos % (Auto) 0.3 Baso % (Auto) 0.3 Lymph # (Auto) 1.2 [place] # (Auto) 0.5 Eos # (Auto) 0.0 Baso # (Auto) 0.0 Abs Immat Gran (auto) 0.02 Absolute Neuts (auto) 4.3 Absolute Nucleated RBC 0.000 Nucleated RBC % (auto) 0.0 Hold Blue Top Sodium Potassium Chloride Carbon Dioxide Anion Gap BUN Creatinine Estim Creat Clear Calc Estimated GFR Random Glucose Calcium Magnesium Total Bilirubin Direct Bilirubin AST ALT Alkaline Phosphatase Troponin I High Sens < 3.5 Total Protein Albumin Urine Color Urine Appearance Urine pH Ur Specific [place] Urine Protein Urine Glucose (UA) Urine Ketones Urine Blood Urine Nitrite Ur Leukocyte Esterase COVID-19 (FLAVIO) Negative COVID-19 Clin Com See Note 12/04/20 12/04/20 12/04/20 15:42 15:42 18:27 WBC RBC Hgb Hct MCV MCH MCHC RDW Plt Count MPV Immature Gran % (Auto) Neut % (Auto) Lymph % (Auto) [place] % (Auto) Eos % (Auto) Baso % (Auto) Lymph # (Auto) [place] # (Auto) Eos # (Auto) Baso # (Auto) Abs Immat Gran (auto) Absolute Neuts (auto) Absolute Nucleated RBC Nucleated RBC % (auto) Hold Blue Top SEE NOTE Sodium 140 Potassium 4.2 Chloride 108 Carbon Dioxide 25 Anion Gap 11 L BUN 9 D Creatinine 1.10 Estim Creat Clear Calc 104.1 Estimated GFR > 60 Random Glucose 107 Calcium 9.4 Magnesium 1.9 Total Bilirubin 0.6 Direct Bilirubin 0.2 AST 15 ALT 16 Alkaline Phosphatase 98 Troponin I High Sens Total Protein 6.3 L Albumin 4.2 Urine Color YELLOW Urine Appearance CLEAR Urine pH 6.5 Ur Specific [place] <= 1.005 Urine Protein NEG Urine Glucose (UA) NEG Urine Ketones NEG Urine Blood NEG Urine Nitrite NEG Ur Leukocyte Esterase NEG COVID-19 (FLAVIO) COVID-19 [place] 12/05/20 12/05/20 05:52 05:52 WBC 6.0 RBC 4.56 L Hgb 13.2 L Hct 39.3 L MCV 86.2 MCH 28.9 MCHC 33.6 RDW 12.5 Plt Count 222 MPV 10.0 Immature Gran % (Auto) 0.5 H Neut % (Auto) 64.1 Lymph % (Auto) 26.2 [place] % (Auto) 7.7 Eos % (Auto) 1.0 Baso % (Auto) 0.5 Lymph # (Auto) 1.6 [place] # (Auto) 0.5 Eos # (Auto) 0.1 Baso # (Auto) 0.0 Abs Immat Gran (auto) 0.03 Absolute Neuts (auto) 3.8 Absolute Nucleated RBC 0.000 Nucleated RBC % (auto) 0.0 Hold Blue Top Sodium 142 Potassium 4.2 Chloride 112 H Carbon Dioxide 24 Anion Gap 10 L BUN 10 Creatinine 1.13 Estim Creat Clear Calc 101.4 Estimated GFR > 60 Random Glucose 91 Calcium 8.8 D Magnesium Total Bilirubin Direct Bilirubin AST ALT Alkaline Phosphatase Troponin I High Sens Total Protein Albumin Urine Color Urine Appearance Urine pH Ur Specific [place] Urine Protein Urine Glucose (UA) Urine Ketones Urine Blood Urine Nitrite Ur Leukocyte Esterase COVID-19 (FLAVIO) COVID-19 Clin Com Quality Stroke Does the patient have a stroke diagnosis?: No VTE Prior VTE?: No VTE Risk Level:: Medical - moderate - high VTE Device Contraindication: Treatment Not Indicated VTE Drug Contraindication: N/A - Med Ordered Assessment and Plan (1) Orthostatic hypotension: Status: Acute (2) Bradycardia: Status: Acute Assessment and Plan: This is a 30-year-old male with history of orthostatic hypotension and bradycardia who presented to the hospital with complaints of dizziness, presyncope, bradycardia orthostatic hypotension Outpatient tilt-table test positive, was started low-dose midodrine recently Symptoms worsened with dizziness and presyncope. feeling better this morning - continue IV fluids - increased dose of midodrine to 10 TID - cardiology following bradycardia s/p atropine in ED h/o bradycardia. has had outpatient workup including cardiac event monitor Echo from September with preserved EF and no regional wall motion abnormality Thought to be in part related to methadone, patient not interested in changing/discontinuing this medication at this time -no heart block on EKG -seen by Cardiology, no indication for pacemaker at this time -monitor overnight on telemetry atypical chest pain - troponin negative - EKG shows sinus bradycardia with no evidence of ACS - seen by Cardiology, no further workup required History of substance abuse -continue home dose of methadone Tobacco dependence -NRT DVT prophylaxis: Lovenox Attending-Dr. Narvaez
--- NOTE | 2020-12-05 14:35 | CA_ITS ---
Acquisition Time: 2020-12-06 11:05:32 Total Exercise Time: 00:13:00 Test Indications: SYNCOPE Medications: SEE CHART Protocol: VANESA Max HR: 173 BPM 91% of Pred: 190 BPM Max BP: 140/070 mmHG Max Work Load: 15.3 METS Exercise stress test with exercise 13 min of Vanesa protocol achieving heart rate 171 ( 90% MPHR), without anginal symptoms or lightheadedness, with sinus arrythmia noted throughtout test, with labile BP noted during exercise and recovery, without EKG changes meeting criteria for ischemia. EKG tracings and report reviewed with Dr Adkins. - Normal chronotropic response Referred By: Myron Adkins Overread By: DARRYL ZUNIGA
[2020-12-05] MEDS: Acetaminophen 325 MG TABLET 650 MG PO (17:29)
[2020-12-05] MEDS: 0.9 % Sodium Chloride Flush 3 ML SYRINGE IVFLUSH (19:52)
[2020-12-05] MEDS: Enoxaparin Sodium 40 MG/0.4 ML SYRINGE SUBCUT (21:06)
[2020-12-06] VITALS: BP 108/65; PULSE 40; RESP 18; TEMP 36.6; O2SAT 98
[2020-12-06 03:52] VITALS: BP 107/63; PULSE 50; RESP 18; TEMP 37; O2SAT 98
[2020-12-06] MEDS: Lactated Ringers 1,000 ML 100 ML IVCONT (03:52)
[2020-12-06 07:08] VITALS: BP 122/73; PULSE 48; RESP 16; TEMP 36.6; O2SAT 100
[2020-12-06 08:58] VITALS: BP 122/73; PULSE 48
[2020-12-06] MEDS: Midodrine HCl 10 MG TABLET PO ×2 (08:58→13:38)
[2020-12-06] MEDS: Nicotine 21 MG PATCH.TD24 TRANSDERMA (08:59)
[2020-12-06] MEDS: 0.9 % Sodium Chloride Flush 3 ML SYRINGE IVFLUSH (09:01)
[2020-12-06] MEDS: Acetaminophen 325 MG TABLET 650 MG PO (09:07)
[2020-12-06 12:00] VITALS: BP 125/85; PULSE 68; RESP 16; TEMP 36.2; O2SAT 97
[2020-12-06 13:38] VITALS: BP 125/85; PULSE 68
--- NOTE | 2020-12-06 13:46 | P.DS_ITS ---
DS: Providers Provider Date of Service: 12/06/20 <KUSH Masterson - Last Filed: 12/06/20 14:00> Date of admission: 12/04/20 20:06 <KUSH Masterson - Last Filed: 12/06/20 14:00> Primary care physician: May Khan MD <KUSH Masterson - Last Filed: 12/06/20 14:00> Consults: 12/04/20 20:08 Consult to Cardiology Routine Consulting Provider: Myron Adkins Reason for consultation: symptomatic bradycardia Has provider been notified: Yes <KUSH Masterson - Last Filed: 12/06/20 14:00> DS: Diagnosis Discharge Diagnosis (1) Orthostatic hypotension: Status: Acute <KUSH Masterson - Last Filed: 12/06/20 14:00> (2) Bradycardia: Status: Acute <KUSH Masterson Last Filed: 12/06/20 14:00> DS: Medications Discharge Medications Home Medications: Home Medications Medication Instructions Recorded Confirmed methadone 10 mg/5 mL oral solution 86 mg PO DAILY ml 08/27/20 12/04/20 Previous Rx's Medication Instructions Recorded blood pressure monitor #1 ea 11/01/20 midodrine 10 mg PO TIDWM 30 Days #90 tab 12/06/20 <KUSH Masterson Last Filed: 12/06/20 14:00> DS: Summary Hospital Course Hospital Course: From H&P on day of admission This is a 30-year-old male with past medical history of bradycardia, orthostatic dizziness and hypotension who presents to the hospital with complaints of postural dizziness, no heart rate, lightheadedness, and almost passing out. Patient reports that the symptoms started in August and are usually intermittent, resolving spontaneously and coming about spontaneously. Patient is currently being worked up for his bradycardia by Cardiology with a 30 day Holter monitor. But reports his symptoms are so severe that he decided to come to the hospital. His symptoms started on Wednesday and have been progressively worsening. Patient also reports shortness of breath mostly with exertion, no cough, sputum production, no fever or chills, patient is also complaining of left-sided stabbing 5/10 nonradiating chest pain that is constant started at 2:00 p.m.. Not worsening with deep inspiration or movement. Denies any abdominal pain nausea or vomiting, no diarrhea constipation, no urinary symptoms and no lower extremity edema. On arrival to the ED hemodynamically stable with a temp of 98.1?, heart rate of 41, respiratory rate of 16, blood pressure of 104/72, satting 100% on room air. While in the ED patient's heart fluctuated between low 30s to mid 40s. He also had low blood pressure reading that improved with midodrine that he also takes at home for orthostatic hypotension Lab significant For WBC count of 6.0, hemoglobin of 13.9, otherwise unremarkable. Presyncope-likely secondary to bradycardia orthostatic hypertension. Please see below Orthostatic hypotension. Patient has known history of orthostatic hypotension. Was recently started on midodrine. Patient's blood pressure continued to be low and therefore his dose of midodrine was increased to 10 mg t.i.d.. Orthostatic precautions were discussed with the patient. Bradycardia. h/o bradycardia. Heart rate has been primarily in 40s. He did receive 1 dose of atropine in the emergency department. Is being followed by Cardiology and has had outpatient workup including cardiac event monitor. Echo from September with preserved EF and no regional wall motion abnormality. Bradycardia and hypotension thought to be in part related to methadone, patient not interested in changing/discontinuing this medication at this time. No heart block on EKG. Was seen by Cardiology in the hospital and underwent exercise stress test with appropriate response in heart rate. No indication for pacemaker at this time. Stable for discharge home to continue outpatient follow-up with Cardiology. History of substance abuse. Patient was continued on his home dose of methadone. Attending Attestation: Patient seen and examined independently and I was present during bryan portion of E/M service. Agree with KUSH Ceja's history, physical, assessment, and plan. <KUSH Masterson - Last Filed: 12/06/20 14:00> Time Spent with Patient Time attestation: Total time spent providing and/or coordinating discharge services: <KUSH Masterson - Last Filed: 12/06/20 14:00> Discharge coordination time: Greater than 30 minutes <KUSH Masterson - Last Filed: 12/06/20 14:00> Quality: Stroke Does the patient have a stroke diagnosis?: No <KUSH Masterson - Last Filed: 12/06/20 14:00> Physical Exam 2 Vital Signs: Vital Signs: Last Vital Signs Temp 97.2 F 12/06/20 12:00 Pulse 68 12/06/20 13:38 Resp 16 12/06/20 12:00 BP 125/85 12/06/20 13:38 Pulse Ox 97 12/06/20 12:00 Body Mass Index 22.4 <KUSH Masterson - Last Filed: 12/06/20 14:00> Const: General: comfortable, no acute distress, alert and awake <KUSH Masterson - Last Filed: 12/06/20 14:00> Nutritional Appearance: well nourished <KUSH Masterson - Last Fi led: 12/06/20 14:00> Orientation/consciousness: patient oriented x3 <KUSH Masterson - Last Filed: 12/06/20 14:00> HENMT: Head: Yes normocephalic and Yes atraumatic <KUSH Masterson - Last Filed: 12/06/20 14:00> Eyes: Sclerae: sclerae normal <KUSH Masterson - Last Filed: 12/06/20 14:00> Chest: Chest palpation & inspection: normal inspection of the chest <KUSH Masterson - Last Filed: 12/06/20 14:00> Resp: Effort & Inspection: normal respiratory effort and no respiratory distress <KUSH Masterson Last Filed: 12/06/20 14:00> Auscultation: clear to auscultation bilaterally <KUSH Masterson - Last Filed: 12/06/20 14:00> Cardio: Rate: bradycardic <KUSH Masterson - Last Filed: 12/06/20 14:00> Rhythm: regular rhythm <KUSH Masterson - Last Filed: 12/06/20 14:00> GI: Palpation (GI): Soft to palpation and nontender <KUSH Masterson - Last Filed: 12/06/20 14:00> Neuro: General: patient oriented x3 <KUSH Masterson - Last Filed: 12/06/20 14:00> Cranial nerves: Yes CN's II-XII intact bilaterally and Yes Bilaterally intact EOM present <KUSH Masterson - Last Filed: 12/06/20 14:00> Discharge Plan Discharge Patient Disposition: Home, Self-Care <KUSH Masterson - Last Filed: 12/06/20 14:00> Discharge Diagnosis: bradycardia orthostatic hypotension <KUSH Masterson - Last Filed: 12/06/20 14:00> bradycardia orthostatic hypotension <Jewel Narvaez MD - Last Filed: 12/06/20 15:19> Referrals: May Khan MD [Primary Care Provider] - 1 Week Myron Adkins MD [Physician] - 1 Week <KUSH Masterson - Last Filed: 12/06/20 14:00> Discharge Medications: New midodrine 10 mg Tablet 10 mg PO TIDWM 30 Days Qty: 90 RF: 0 Continued methadone 10 mg/5 mL solution 86 mg PO DAILY RF: 0 Discontinued midodrine 2.5 mg tablet 2.5 mg PO TIDWM RF: 0 No Action (DME) blood pressure monitor [Blood Pressure Kit] Kit See Rx Instructions .ROUTE .MEDSUPPLY Qty: 1 RF: 0 <KUSH Masterson - Last Filed: 12/06/20 14:00> Discharge Orders: Discharge Order (Routine); Ordered 12/06/20 Ordered By: Rosita Bailey <KUSH Masterson - Last Filed: 12/06/20 14:00> Activity on Discharge: see below <KUSH Masterson - Last Filed: 12/06/20 14:00> see below <Jewel Narvaez MD - Last Filed: 12/06/20 15:19> Stand Alone Forms: Patient Portal Discharge page, Work/School Release <KUSH Masterson - Last Filed: 12/06/20 14:00> Care Plan Goals: See below <KUSH Masterson - Last Filed: 12/06/20 14:00> Health Concerns: Bradycardia Orthostatic hypotension <KUSH Masterson - Last Filed: 12/06/20 14:00> Plan of Treatment: Dose of midodrine has been increased Orthostatic precautions as discussed - stay hydrated, sit before standing etc follow up with cardiology <KUSH Masterson - Last Filed: 12/06/20 14:00> Assessment: See discharge summary <KUSH Masterson - Last Filed: 12/06/20 14:00>
--- NOTE | 2020-12-06 13:49 | MHC.CM.PN ---
Patient has been medically cleared for dc to home today, no services.
--- NOTE | 2020-12-06 14:34 | PM.PNCARD ---
Subjective Subjective Date of Service: 12/06/20 Principal diagnosis: orthostatic hypotension, bradycardia Interval history: cardiology follow up for the above. Seen at 1200. Today he reports feeling good. He has no concerning symptoms. No chest pains, sob, palpitations, lightheadedness. Steady on feet. Review of Systems Review of Systems as above Yes all other systems are reviewed and are negative Physical Exam Vital Signs: Last Vital Signs Temp 97.2 F 12/06/20 12:00 Pulse 68 12/06/20 13:38 Resp 16 12/06/20 12:00 BP 125/85 12/06/20 13:38 Pulse Ox 97 12/06/20 12:00 Body Mass Index 22.4 Const General: cooperative, no acute distress, alert and awake Orientation/consciousness: patient oriented x3 Resp Effort & Inspection: normal respiratory effort, able to speak in complete sentences and not labored Auscultation: clear to auscultation bilaterally, no crackles, no rales, no rhonchi and no wheezes Cardio Palpation: normal PMI Rate: regular rate Rhythm: regular rhythm Heart sounds: S1 normal heart sound present and S2 normal heart sound present Peripheral pulses: Peripheral pulses 2+ throughout GI Inspection: Yes normal to inspection Neuro General: patient oriented x3 Extrem General: Yes normal to inspection and No edema Results Labs and Meds Result diagrams: 12/05/20 05:52 12/05/20 05:52 Progress Note: A&P Assessment and plan (1) Orthostatic hypotension: Status: Acute Assessment and Plan: Newer diagnosis of orthostatic hypotension as outpt, with tilt table test. Was started on Midodrine last month. Admit with presyncope, orthostatic hypotension. He has been hydrated and Midodrine increased to 10mg TID. BP no longer hypotensive. Noted to be labile during ETT today. He has no presyncope, lightheadedness at this time. He can be discharged from a cardiology perspective. Continue Midodrine 10mg TID. Reviewed need for increased fluid intake. We will arrange for outpt cardiology follow up. (2) Bradycardia: Status: Acute Assessment and Plan: EKG/ Tele shows SB at times with rates as low as 30- 40s without symptoms. Tele shows sinus arrythmia, rates 40-90s. Had ETT today - good exercise tolerance. Normal chronotropic response to exercise. No indication for PPM placement at this time. Recommend wean off methadone. Fall Risk Details Current Medications: Current Medications Generic Name Dose Route Start Last Admin Trade Name Freq PRN Reason Stop Dose Admin Acetaminophen 650 mg 12/04/20 20:08 12/06/20 09:07 Acetaminophen 325 Mg Tablet PO 650 mg Q6H PRN Administration Pain, Mild (Pain Scale 1-3) Docusate Sodium 100 mg 12/04/20 20:08 Docusate Sodium 100 Mg Capsule PO DAILY PRN Constipation Enoxaparin Sodium 40 mg 12/04/20 22:00 12/05/20 21:06 Enoxaparin Sodium 40 Mg/0.4 Ml Syringe SUBCUT 40 mg Q24H GAIL Administration Methadone HCl 90 mg 12/05/20 09:30 12/06/20 09:58 Methadone Hcl 1 Mg/0.1 Ml Oral.Conc PO 90 mg DAILY GAIL Administration Midodrine 10 mg 12/05/20 12:00 12/06/20 13:38 Midodrine Hcl 10 Mg Tablet PO 10 mg TIDWM GAIL Administration Nicotine 21 mg 12/06/20 08:00 12/06/20 08:59 Nicotine 21 Mg Patch.Td24 TRANSDERMA 21 mg DAILY@0800 GAIL Administration Ondansetron HCl 4 mg 12/04/20 20:08 Ondansetron Hcl 4 Mg/2 Ml Vial IVPUSH Q8H PRN Nausea and Vomiting Pharmacy Consult 1 each 12/04/20 18:29 Consult Rx Perform Med Rec MISCELLANE ONCE PRN Consult order Sodium Chloride 3 ml 12/05/20 00:00 12/06/20 09:01 0.9 % Sodium Chloride Flush 3 Ml Syringe IVFLUSH 3 ml QSHIFT GAIL Administration Time Spent With Patient Time: Total time spent is greater than 50% in coordination of care (as documented) at patient's floor/unit and/or counseling patient: 20 Time with patient: 15 - 24 minutes Progress Note: Quality Stroke Does the patient have a stroke diagnosis?: No Procedures Date of Service Date of Service: 12/06/20
== END 2020-12-06 15:36 | disposition home or self-care (01) | DRG 204 ==
LOC: HO.ED 20:09 → HO.EDOVER 20:16 → HO.IMC 12-05 09:16
PROVIDERS: Physician Assistant; Admitting Provider Internal Medicine; Emergency Provider Emergency Medicine; PCP Family Medicine; Visit Provider Family Medicine
DX: I95.1 Orthostatic hypotension (principal); F11.20 Opioid dependence, uncomplicated; R00.1 Bradycardia, unspecified; F41.9 Anxiety disorder, unspecified; F17.210 Nicotine dependence, cigarettes, uncomplicated; F32.9 Major depressive disorder, single episode, unspecified; Z71.6 Tobacco abuse counseling; Z20.822 Contact with and (suspected) exposure to COVID-19; Z79.899 Other long term (current) drug therapy
CPT/HCPCS: 36415; 71045; 80048; 80076; 81003; 83735; 84484; 85025; 87635; 93005; 93017; 99285; J0461; J1650

== ENCOUNTER → 2020-12-17 14:49 | Outpatient (BNVA) | payer OTHER, SELFPAY | PROVIDERS: PCP Family Medicine; Referring Provider Family Medicine; Visit Provider Internal Medicine Cardiovascular Disease | DX: I95.1 Orthostatic hypotension (principal) | CPT/HCPCS: 99212 ==

== ENCOUNTER 2020-12-20 10:06 | Emergency (ER) | payer OTHER, SELFPAY ==
--- NOTE | ~2020-12-20 | XR_ITS ---
EXAMINATION: XR CHEST CLINICAL INFORMATION: Weakness. Rule out pneumonia. COMPARISON: Previous chest x-ray most recent 12/04/2020 TECHNIQUE: Frontal view of the chest was obtained. FINDINGS: No significant abnormality is noted involving the heart, lungs, mediastinum, bony thorax or soft tissues. XR/XR chest 1V IMPRESSION: Unremarkable examination.
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
[2020-12-20 10:18] VITALS: BP 107/71; PULSE 53; RESP 16; TEMP 36.4; O2SAT 98; BMI 28.7
[2020-12-20 10:32] VITALS: BP 116/77; PULSE 50; RESP 18; O2SAT 98
--- NOTE | 2020-12-20 10:38 | ECG_ITS ---
Test Reason : BRADYCARDIA Blood Pressure : / mmHG Vent. Rate : 056 BPM Atrial Rate : 056 BPM P-R Int : 112 ms QRS Dur : 092 ms QT Int : 478 ms P-R-T Axes : 051 -41 -28 degrees QTc Int : 461 ms Sinus bradycardia with sinus arrhythmia Left axis deviation Minimal voltage criteria for LVH, may be normal variant Nonspecific T wave abnormality Abnormal ECG When compared with ECG of 04-DEC-2020 15:08, Vent. rate has increased BY 18 BPM T wave inversion now evident in Anterior leads Referred By: Peter Mei Electronically Signed By:EVAN MORRELL
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
[2020-12-20 11:57] LABS: MANUAL DIFF FLAG NO
[2020-12-20 11:58] LABS: Basophils Percent Auto 0.5 % (0-2); Eosinophils Absolute Auto 0.2 X10*3/uL (0.0-0.4); Eosinophils Percent Auto 3.8 % (0-4); Hematocrit 34.8 % (42-52); Hemoglobin 11.5 g/dl (14.0-18.0); Imm Gran Abs Auto 0.01 X10*3/uL (0.00-0.03); Imm Gran Pct Auto 0.2 % (0.0-0.4); Lymphocytes Absolute Auto 2.5 X10*3/uL (1.2-4.9); Lymphocytes Percent Auto 39.3 % (20-40); Mean Corpuscular Volume 87.9 fL (80-98); Monocytes Absolute Auto 0.7 X10*3/uL (0.1-1.2); Monocytes Percent Auto 10.6 % (2-11); Neutrophils Absolute Auto 2.9 X10*3/uL (2.0-8.3); Neutrophils Percent Auto 45.6 % (45-73); Platelet Count 270 X10*3/uL (160-400); Red Blood Count 3.96 X10*6/uL (4.60-5.80); Red Cell Distribution Width 13.1 % (11.0-16.0); White Blood Count 6.3 X10*3/uL (4.8-10.8)
[2020-12-20 12:11] LABS: Alanine Aminotransferase 22 U/L (0-40); Albumin Level 4.2 g/dL (3.5-5.0); Alkaline Phosphatase 100 U/L (39-117); Anion Gap 10 (12-20); Aspartate Amino Transferase 25 U/L (5-37); Bilirubin Total 0.3 mg/dL (0.0-1.0); Blood Urea Nitrogen 21 mg/dL (9-16); C Reactive Protein 0.17 mg/dL (< or = 0.50); Carbon Dioxide 29 mmol/L (22-29); Chloride 107 mmol/L (96-108); Creatinine Clr Calc Pharmacy 86.7; Estimated Glomerular Filt Rate 59; Glucose Random 80 mg/dL (60-115); Lipase 9 U/L (8-78); Potassium 3.5 mmol/L (3.3-5.1); Sodium 142 mmol/L (135-145); Total Protein 6.3 g/dL (6.5-8.0)
[2020-12-20 12:12] LABS: Troponin-I High Sensitivity < 3.5 ng/L (<3.5-35.0)
[2020-12-20 12:26] LABS: TSH reflex Free T4 2.31 uIU/mL (0.32-4.0)
[2020-12-20 12:48] LABS: Lactic Acid 0.6 mmol/L (0.5-2.0)
[2020-12-20 12:49] LABS: Ethanol < 10 mg/dL
[2020-12-20 13:04] LABS: COVID-19 Test Negative (Negative)
[2020-12-20 13:14] VITALS: O2SAT 96
[2020-12-20 13:33] LABS: Glucose Urine UA NEG (NEG); Leukocyte Esterase Urine NEG (NEG); Nitrite Urine NEG (NEG); Specific Gravity - Urine >= 1.030 (1.005-1.025); Urine Blood NEG (NEG); Urine Ketones NEG (NEG); Urine Protein TRACE MG/DL (NEG-TRACE)
[2020-12-20 13:36] LABS: Appearance Urine HAZY; Color Urine YELLOW
[2020-12-20 13:56] LABS: Erythrocyte Sedimentation Rate 6 MM/HR (0-15)
[2020-12-20] MEDS: 0.9 % Sodium Chloride 1,000 ML 999 ML IV (14:52)
[2020-12-20 15:30] LABS: Amphetamine Screen Urine Not Detected (Not Detect); Barbiturates, Urine Not Detected (Not Detect); Benzodiazepines Screen Urine POSITIVE (Not Detect); Cannabinoid Screen Urine Not Detected (Not Detect); Cocaine Screen Urine Not Detected (Not Detect); Opiate Screen Urine Not Detected (Not Detect); Phencyclidine Screen Urine Not Detected (Not Detect)
== END 2020-12-20 16:28 | disposition home or self-care (01) ==
PROVIDERS: Emergency Provider Emergency Medicine Emergency Medical Services
DX: Z04.1 Encounter for examination and observation following transport accident (principal); R55 Syncope and collapse; E86.0 Dehydration; Z20.822 Contact with and (suspected) exposure to COVID-19; D64.9 Anemia, unspecified; F11.20 Opioid dependence, uncomplicated; F17.210 Nicotine dependence, cigarettes, uncomplicated
CPT/HCPCS: 36415; 70450; 71045; 80053; 80307; 81003; 82077; 82550; 83605; 83690; 84443; 84484; 85025; 85652; 86140; 87635; 93005; 96360; 99284; 99285

== ENCOUNTER → 2020-12-31 09:15 | Outpatient (BNVA) | payer OTHER, SELFPAY | PROVIDERS: Visit Provider Internal Medicine Cardiovascular Disease | DX: I95.1 Orthostatic hypotension (principal) | CPT/HCPCS: 99212 ==

== ENCOUNTER 2021-01-13 10:06 | Outpatient (REF) | payer OTHER, SELFPAY ==
[2021-01-13 11:50] LABS: Anion Gap 12 (12-20); Blood Urea Nitrogen 9 mg/dL (9-16); Carbon Dioxide 28 mmol/L (22-29); Chloride 104 mmol/L (96-108); Estimated Glomerular Filt Rate > 60; Glucose Random 95 mg/dL (60-115); Potassium 3.4 mmol/L (3.3-5.1); Sodium 141 mmol/L (135-145)
== END 2021-01-13 10:07 | disposition home or self-care (01) ==
LOC: HO.LAB 10:06
PROVIDERS: PCP Family Medicine; Visit Provider Internal Medicine Cardiovascular Disease
DX: I95.1 Orthostatic hypotension (principal)
CPT/HCPCS: 36415; 80048

== ENCOUNTER → 2021-01-14 10:06 | Outpatient (REF) | payer OTHER, SELFPAY | LOC: HO.CARD 10:06 | PROVIDERS: Referring Provider Family Medicine; Visit Provider Internal Medicine Cardiovascular Disease | DX: I95.1 Orthostatic hypotension (principal); I49.3 Ventricular premature depolarization | CPT/HCPCS: 93226 ==

== ENCOUNTER → 2021-02-11 10:17 | Outpatient (BNVA) | payer OTHER, SELFPAY | PROVIDERS: Visit Provider Internal Medicine Cardiovascular Disease | DX: I95.1 Orthostatic hypotension (principal); R00.1 Bradycardia, unspecified | CPT/HCPCS: 99212 ==

== ENCOUNTER → 2021-03-13 07:07 | Outpatient (REF) | payer OTHER, SELFPAY ==
--- NOTE | 2021-03-13 07:10 | HM_ITS ---
Conclusion: Patient was monitored for total 6 days and 22 hours Baseline rhythm is normal sinus rhythm with average heart rate 69 beats per minute The no significant pauses or bradycardia noted No sustained tachyarrhythmias noted Rare ectopics noted Patient reported 1 event correlated with sinus rhythm MTDD
== END ==
LOC: HO.CARD 07:07
PROVIDERS: Visit Provider Internal Medicine Cardiovascular Disease
DX: I95.1 Orthostatic hypotension (principal)
CPT/HCPCS: 93242

== ENCOUNTER → 2021-04-14 12:41 | Outpatient (BNVA) | payer OTHER, SELFPAY | PROVIDERS: Visit Provider Internal Medicine Cardiovascular Disease | DX: I95.1 Orthostatic hypotension (principal) | CPT/HCPCS: 99212 ==

== ENCOUNTER → 2021-10-09 12:45 | Outpatient (BNVA) | payer OTHER, SELFPAY | PROVIDERS: Visit Provider Internal Medicine Cardiovascular Disease | DX: I95.1 Orthostatic hypotension (principal) | CPT/HCPCS: 99212 ==

== ENCOUNTER 2021-12-11 07:09 | Emergency (ER) | payer OTHER, SELFPAY ==
--- NOTE | ~2021-12-11 | CT_ITS ---
EXAMINATION: CT ABDOMEN AND PELVIS WITHOUT CONTRAST CLINICAL INFORMATION: Abdominal pain COMPARISON: CT abdomen pelvis 07/01/2009 TECHNIQUE: Multidetector volumetric imaging was performed from the superior aspect of the liver through the pubic symphysis. Sagittal and coronal reformatted images were obtained on the technologist's workstation. This CT examination was performed using dose optimization techniques as appropriate, variously including the following: *Automated exposure control *Adjustment of mA and/or kV according to patient size (this includes techniques or standardized protocols for targeted exams where dose is matched to indication/reason for exam; i.e. extremities or head) *Use of iterative reconstruction technique DLP: 434 mGy-cm FINDINGS: LUNG BASES: The visualized lung bases are unremarkable. LIVER, GALLBLADDER, AND BILIARY TREE: The liver is normal in size, shape, and attenuation. No focal hepatic lesion or biliary ductal dilatation is present. The gallbladder contains subtle layering high density material which could represent stones or sludge but otherwise is unremarkable with no evidence of calcified gallstones, gallbladder wall thickening, or obvious pericholecystic inflammatory changes. PANCREAS: There is fatty infiltration of the pancreas. SPLEEN: Unremarkable. ADRENAL GLANDS: Unremarkable. KIDNEYS AND URETERS: The kidneys are normal in size, shape, and attenuation. No hydronephrosis, hydroureter, or calculi seen. Previously seen tiny right renal calculus in 2010 no longer present. No perinephric stranding. BLADDER: Unremarkable. GASTROINTESTINAL TRACT: Some mild inflammatory changes are present in the fat around the cecum, but no gross diverticulitis is not seen. Some small lymph nodes are present in the cecal mesentery, also present in 2010. The small and large bowel are otherwise unremarkable. The appendix is not seen and some surgical material is seen in the region of the appendix.. ABDOMINAL WALL: No significant hernia is appreciated. LYMPH NODES: Normal. VASCULAR: Unremarkable. PELVIC VISCERA: Moderate free fluid is present in the pelvis. A small amount of fluid is present in the right lateral conal fascia as well as in Morison's pouch. Prostate and seminal vesicles appear normal. OSSEOUS STRUCTURES: Unremarkable. CT/CT abdomen pelvis wo con IMPRESSION: There is moderate free fluid present in the pelvis with a small area of fluid in the right lateral conal fascia and in Morison's pouch. Some minimal inflammatory changes are present around the cecum without gross evidence of diverticulitis. The appendix appears to have been removed. Findings could represent subtle diverticulitis or possibly colitis. Some mild high density layering material in the gallbladder could represent stones or sludge. Ultrasound could be performed for further evaluation. Fleischner guidelines were followed.
[2021-12-11 07:17] VITALS: BP 104/86; PULSE 60; RESP 18; TEMP 36.6; O2SAT 96; BMI 20.9
--- NOTE | 2021-12-11 08:02 | ED.GENADULT ---
HPI - General Adult General Chief complaint: Abdominal Pain Stated complaint: severe abd pain Time Seen by Provider: 12/11/21 08:02 Source: patient Mode of arrival: ambulatory Limitations: no limitations History of Present Illness HPI narrative: Patient is a 31 year old male presenting to the emergency department today with abdominal pain. Patient states that he is having left lower abdominal pain intermittently. Patient denies any dizziness, lightheadedness, nausea, vomiting, fever, chills, blurry vision, double vision, loss of vision, chest pain, difficulty breathing, shortness of breath, back pain, night sweats, pain with urination, increased urinary frequency, increased urinary urgency, blood in his urine or stool, syncope or a near syncopal episode, recent trauma or falls, bowel incontinence, bladder incontinence, bowel retention, bladder retention, or any other complaints at this time. Onset (ago): day(s) Location: abdomen Radiation: non-radiation Severity: mild Severity scale (1-10): 2 Quality: dull Pain Consistency: intermittent Relieving factors: none Exacerbating factors: none Associated symptoms: denies other symptoms Treatments prior to arrival: none Related Data Home Medications Medication Instructions Recorded Confirmed methadone 10 mg/5 mL oral solution 86 mg PO DAILY 08/27/20 10/09/21 clonidine HCl 0.2 mg tablet 0.2 mg PO BID 10/09/21 10/09/21 Previous Rx's Medication Instructions Recorded blood pressure monitor (Blood #1 ea 11/01/20 Pressure Kit) citalopram 40 mg tablet 40 mg PO DAILY #30 tabs 10/09/21 midodrine 5 mg tablet 5 mg PO TID #90 tabs 10/09/21 Allergies Allergy/AdvReac Type Severity Reaction Status Date / Time No Known Allergies Allergy Verified 10/09/21 12:53 Review of Systems Constitutional: Constitutional: Reports no additional constitutional complaints, Denies chills, Denies fever(s) and Denies night sweats Eyes: Eyes: Reports no additional eye complaints, Denies blurry vision, Denies change in vision, Denies diplopia, Denies eye discharge, Denies loss of vision and Denies eye pain ENT: Denies dizziness Cardiovascular: Cardiovascular: Reports no additional cardiovascular complaints, Denies chest pain, Denies lightheadedness, Denies Loss of Consciousness and Denies dyspnea Respiratory: Respiratory: Reports no additional respiratory complaints and Denies dyspnea Gastrointestinal: Gastrointestinal: Reports no additional gastrointestinal complaints, Reports abdominal pain, Denies melena, Denies hematochezia, Denies change in bowel habits and Denies change in stool character Genitourinary: Genitourinary: Reports no additional male genitourinary complaints, Denies hematuria, Denies oliguria, Denies difficulty urinating, Denies dysuria, Denies urinary frequency, Denies urinary hesitancy, Denies urinary incontinence and Denies urinary urgency Musculoskeletal: Musculoskeletal: Reports no additional musculoskeletal complaints, Denies numbness and Denies tingling Neurologic: Denies dizziness, Denies loss of vision, Denies numbness and Denies tingling Psychiatric: Psychiatric: Reports no additional psychiatric complaints Endocrine: Endocrine: Reports no additional endocrine complaints Hematologic/Lymphatic: Hematologic/Lymphatic: Reports no additional hematologic/lymphatic complaints Allergic/Immunologic: Allergic/Immunologic: Reports no additional allergic/immunologic complaints [facility] Past Medical History Attestation statement: The following information was validated with the patient. Source: old records reviewed Medical History Anemia Surgical History History of appendectomy History of endoscopy History of hernia repair Family History Family History Father Afib Mother No problems noted. Social History Social History Household Members: Other Housing: House Do you presently have visiting nurse or other home services: No Alcohol intake: never Patient Tobacco Use Status: Current everyday Tobacco user Tobacco use type: Cigarette Cigarette Packs Per Day: 1 Cigarettes Per Day: 20.0 Years Smoked: 12 +/- e-Cigarette/Vaping Use: Never Used Use of substances other than those prescribed or required for medical reasons: No Substance Use Type: Crack/Cocaine, Heroin, Opiates and Painkillers Advance Directives: No Advance Directives Information Provided: No service: No Current occupational status: employed Physical Exam ED Vital Signs: Vital Signs - 24 hr 12/11/21 07:17 12/11/21 08:11 12/11/21 09:53 Temperature 97.9 F Pulse Rate 60 49 L 53 Respiratory Rate 18 16 14 Blood Pressure 104/86 102/42 L 94/58 L Pulse Oximetry 96 96 96 Oxygen Delivery Method Room Air Room Air Room Air BMI result Body Mass Index 20.9 Const General: cooperative, no acute distress, alert and awake Nutritional Appearance: well nourished Orientation/consciousness: patient oriented x3 Limitations: no limitations HENMT Head: Yes normal to inspection and Yes atraumatic Ears: hearing grossly normal bilaterally and external ears normal General nose exam: Normal external nose present, no nasal discharge noted and no epistaxis Face and sinus: Yes normal facial exam, No abrasion and No laceration Mouth: Normal oral and palatal mucosa present, no drooling and no muffled voice Eyes General: appearance normal, both eyes and all related structures Periorbital: periorbital findings normal Eyelids: Yes eyelids normal Conjunctivae: conjunctivae normal Pupils: Equal, round and reactive pupils present EOM: EOMs intact bilaterally Neck Neck: Yes normal visual inspection, Yes full ROM and Yes no lymphadenopathy Chest Chest palpation & inspection: normal inspection of the chest Resp Effort & Inspection: normal respiratory effort and able to speak in complete sentences Auscultation: clear to auscultation bilaterally Cardio Rate: bradycardic Rhythm: regular rhythm GI Inspection: Yes normal to inspection Palpation (GI): Soft to palpation, not firm, nontender and no guarding Neuro General: patient oriented x3 and moves all extremities Cranial nerves: Yes Equal, round and reactive pupils present Cognition (Neuro): normal cognition Motor exam (neuro): 5/5 motor strength present throughout Sensory Exam: Normal double simultaneous stimulation for sensation Coordination: [id number] test normal Extrem General: Yes normal to inspection, Yes full ROM and Yes capillary refill normal Psych Appearance: grossly normal Mental Status: mental status grossly normal Affect: normal affect Attitude: cooperative Thought process: Normal thought process present Thought content: Normal thought content present Insight: Good insight present (Psych) Medical Decision Making MDM Narrative Medical decision making narrative: Patient is a 31 year old male presenting to the emergency department today with abdominal pain. Patient's physical exam showed bradycardia however, this is normal for the patient and he follows up with cardiology for it. Patient's blood work was unremarkable. Patient's EKG showed sinus bradycardia. Patient's abdominal CT showed signs of colitis. I explained my physical exam findings as well as all test results to the patient. I answered all questions asked by the patient. I stressed the importance of the patient taking his medication as prescribed. I stressed the importance of the patient following up with his primary care provider. I stressed the importance of the patient returning to the emergency department immediately if his symptoms were to worsen or if he were to develop any dizziness, shortness of breath, difficulty breathing, chest pain, blurry vision, loss of vision, nausea, vomiting, abdominal pain, fever, chills, back pain, or any other complaints. Patient verbalized agreement and understanding with this treatment plan and discharge. Differential Diagnosis Differential Diagnosis: Colitis, abdominal pain Medical Records Medical records reviewed: Yes I reviewed the patient's medical records. Lab Data Lab results reviewed: Yes I reviewed the patient's lab results. Result diagrams: 12/11/21 08:25 12/11/21 08:25 Labs: Lab Results 12/11/21 12/11/21 12/11/21 Range/Units 08:25 08:25 08:25 WBC 7.9 (4.8-10.8) X10*3/uL RBC 4.73 (4.60-5.80) X10*6/uL Hgb 14.0 (14.0-18.0) g/dl Hct 41.5 L (42.0-52.0) % MCV 87.7 (80.0-98.0) fL MCH 29.6 (27.0-33.0) pg MCHC 33.7 (31.0-36.0) g/dl RDW 12.9 (11.0-16.0) % Plt Count 241 (160-400) X10*3/uL MPV 9.5 (9.4-12.4) fL Immature Gran % (Auto) 0.4 (0.0-0.4) % Neut % (Auto) 77.0 H (45-73) % Lymph % (Auto) 8.5 L (20-40) % [place] % (Auto) 13.6 H (2-11) % Eos % (Auto) 0.4 (0-4) % Baso % (Auto) 0.1 (0-2) % Lymph # (Auto) 0.7 L (1.2-4.9) X10*3/uL [place] # (Auto) 1.1 (0.1-1.2) X10*3/uL Eos # (Auto) 0.0 (0.0-0.4) X10*3/uL Baso # (Auto) 0.0 (0.0-0.2) X10*3/uL Abs Immat Gran (auto) 0.03 (0.00-0.03) X10*3/uL Absolute Neuts (auto) 6.1 (2.0-8.3) x10*3/uL Absolute Nucleated RBC 0.000 (0.0-0.012) X10*3/uL Nucleated RBC % (auto) 0.0 (0.0-0.2) /100WBC Sodium 135 (135-145) mmol/L Potassium 4.5 D (3.3-5.1) mmol/L Chloride 100 (96-108) mmol/L Carbon Dioxide 28 (22-29) mmol/L Anion Gap 12 (12-20) BUN 17 H (9-16) mg/dL Creatinine 1.35 (0.5-1.4) mg/dL Estim Creat Clear Calc 78.4 Estimated GFR > 60 Random Glucose 76 (60-115) mg/dL Calcium 9.0 (8.4-10.2) mg/dL Magnesium 2.0 (1.6-2.6) mg/dL Total Bilirubin 0.5 (0.0-1.0) mg/dL AST 15 (5-37) U/L ALT 11 (0-40) U/L Alkaline Phosphatase 94 (39-117) U/L Total Protein 6.5 (6.5-8.0) g/dL Albumin 4.1 (3.5-5.0) g/dL COVID-19 (FLAVIO) Negative (Negative) COVID-19 Clin Com See Note Imaging Data CT scan - abdomen: Attestation: I personally reviewed and interpreted this imaging study as follows: My impression: Colitis Radiologist's impression: EXAMINATION: CT ABDOMEN AND PELVIS WITHOUT CONTRAST? CLINICAL INFORMATION: Abdominal pain? COMPARISON: CT abdomen pelvis 07/01/2009? TECHNIQUE: Multidetector volumetric imaging was performed from the superior aspect of the liver through the pubic symphysis. Sagittal and coronal reformatted images were obtained on the technologist's workstation.? This CT examination was performed using dose optimization techniques as appropriate, variously including the following: *Automated exposure control *Adjustment of mA and/or kV according to patient size (this includes techniques or standardized protocols for targeted exams where dose is matched to indication/reason for exam; i.e. extremities or head) *Use of iterative reconstruction technique DLP: 434 mGy-cm FINDINGS: LUNG BASES: The visualized lung bases are unremarkable.? LIVER, GALLBLADDER, AND BILIARY TREE: The liver is normal in size, shape, and attenuation. No focal hepatic lesion or biliary ductal dilatation is present. The gallbladder contains subtle layering high density material which could represent stones or sludge but otherwise is unremarkable with no evidence of calcified gallstones, gallbladder wall thickening, or obvious pericholecystic inflammatory changes.? PANCREAS: There is fatty infiltration of the pancreas.? SPLEEN: Unremarkable.? ADRENAL GLANDS: Unremarkable.? KIDNEYS AND URETERS: The kidneys are normal in size, shape, and attenuation. No hydronephrosis, hydroureter, or calculi seen. Previously seen tiny right renal calculus in 2010 no longer present. No perinephric stranding. ? BLADDER: Unremarkable.? GASTROINTESTINAL TRACT: Some mild inflammatory changes are present in the fat around the cecum, but no gross diverticulitis is not seen. Some small lymph nodes are present in the cecal mesentery, also present in 2010. The small and large bowel are otherwise unremarkable. The appendix is not seen and some surgical material is seen in the region of the appendix..? ABDOMINAL WALL: No significant hernia is appreciated.? LYMPH NODES: Normal. VASCULAR: Unremarkable. PELVIC VISCERA: Moderate free fluid is present in the pelvis. A small amount of fluid is present in the right lateral conal fascia as well as in Morison's pouch. Prostate and seminal vesicles appear normal. OSSEOUS STRUCTURES: Unremarkable.? CT/CT abdomen pelvis wo con IMPRESSION: ? There is moderate free fluid present in the pelvis with a small area of fluid in the right lateral conal fascia and in Morison's pouch. Some minimal inflammatory changes are present around the cecum without gross evidence of diverticulitis. The appendix appears to have been removed. Findings could represent subtle diverticulitis or possibly colitis. ? Some mild high density layering material in the gallbladder could represent stones or sludge. Ultrasound could be performed for further evaluation.? ? Fleischner guidelines were followed. Dictated By: Phi Sosa MD Signed By: Electronically signed by Phi Sosa MD 12/11/21 0968 ECG Data Attestation: I personally reviewed and interpreted this ECG as follows: Prior ECG tracings: available for review Interpretation: Vent. Rate: 046 BPM ? ? Atrial Rate: 046 BPM P-R Int: 136 ms? QRS Dur: 090 ms QT Int: 506 ms ? ? ? P-R-T Axes: 025 -57 -22 degrees QTc Int: 442 ms ? Sinus bradycardia with sinus arrhythmia Left anterior fascicular block Minimal voltage criteria for LVH, may be normal variant ( R in aVL ) Nonspecific T wave abnormality Abnormal ECG When compared with ECG of 20-DEC-2020 10:38, No significant change was found DD/ 0830 Discharge Plan Discharge Clinical Impression: Colitis Patient Disposition: Home, Self-Care Instructions: Colitis (ED) Additional Instructions: Follow up with your primary care provider. Return to the emergency department immediately if your symptoms worsen or if you develop any dizziness, shortness of breath, difficulty breathing, chest pain, blurry vision, loss of vision, nausea, vomiting, abdominal pain, fever, chills, back pain, or any other complaints. Prescriptions: No Action methadone 10 mg/5 mL solution 86 mg PO DAILY (DME) blood pressure monitor [Blood Pressure Kit] Kit See Rx Instructions .ROUTE .MEDSUPPLY Qty: 1 0RF Rx Instructions: Take BP once daily and if symptoms, keep a log clonidine HCl 0.2 mg tablet 0.2 mg PO BID citalopram 40 mg tablet 40 mg PO DAILY Qty: 30 0RF midodrine 5 mg tablet 5 mg PO TID Qty: 90 1RF Rx Instructions: do not give last dose of day after 6PM or within 4 hrs of bedtime Referrals: May Khan MD [Primary Care Provider] - Stand Alone Forms: Work/School Release Interventions: ED Discharge Assessment Last Done: 12/11/21 10:08 Discharge Date/Time: 12/11/21 10:11 Print Language: Khmer
[2021-12-11 08:11] VITALS: BP 102/42; PULSE 49; RESP 16; O2SAT 96
--- NOTE | 2021-12-11 08:28 | ECG_ITS ---
Test Reason : valentino Blood Pressure : / mmHG Vent. Rate : 046 BPM Atrial Rate : 046 BPM P-R Int : 136 ms QRS Dur : 090 ms QT Int : 506 ms P-R-T Axes : 025 -57 -22 degrees QTc Int : 442 ms Sinus bradycardia with sinus arrhythmia Left anterior fascicular block Minimal voltage criteria for LVH, may be normal variant ( R in aVL ) Nonspecific T wave abnormality Abnormal ECG When compared with ECG of 20-DEC-2020 10:38, No significant change was found Referred By: Cinthia Andrade Electronically Signed By:SHAHANA ANGELA MD
--- NOTE | 2021-12-11 08:28 | PC.NURSE ---
Patient alert and oriented complaining of 6 out of 10 abdominal pain, no nausea or vomiting that started yesterday. Skin pale warm and dry. Pt appears sleepy, obtained methadone dose this morning. Bradycardic on tele with lowest HR at 42. Cinthia CURRIE aware, EKG to be obtained. IV established and labs sent.
[2021-12-11 08:31] LABS: MANUAL DIFF FLAG NO
[2021-12-11 08:34] LABS: Basophils Percent Auto 0.1 % (0-2); Eosinophils Percent Auto 0.4 % (0-4); Hematocrit 41.5 % (42.0-52.0); Imm Gran Abs Auto 0.03 X10*3/uL (0.00-0.03); Imm Gran Pct Auto 0.4 % (0.0-0.4); Lymphocytes Absolute Auto 0.7 X10*3/uL (1.2-4.9); Lymphocytes Percent Auto 8.5 % (20-40); Mean Corpuscular HGB Conc 33.7 g/dl (31.0-36.0); Mean Corpuscular Hemoglobin 29.6 pg (27.0-33.0); Mean Corpuscular Volume 87.7 fL (80.0-98.0); Mean Platelet Volume 9.5 fL (9.4-12.4); Monocytes Absolute Auto 1.1 X10*3/uL (0.1-1.2); Monocytes Percent Auto 13.6 % (2-11); Neutrophils Absolute Auto 6.1 x10*3/uL (2.0-8.3); Platelet Count 241 X10*3/uL (160-400); Red Blood Count 4.73 X10*6/uL (4.60-5.80); Red Cell Distribution Width 12.9 % (11.0-16.0); White Blood Count 7.9 X10*3/uL (4.8-10.8)
[2021-12-11 08:47] LABS: Alanine Aminotransferase 11 U/L (0-40); Albumin Level 4.1 g/dL (3.5-5.0); Alkaline Phosphatase 94 U/L (39-117); Anion Gap 12 (12-20); Aspartate Amino Transferase 15 U/L (5-37); Bilirubin Total 0.5 mg/dL (0.0-1.0); Blood Urea Nitrogen 17 mg/dL (9-16); Carbon Dioxide 28 mmol/L (22-29); Chloride 100 mmol/L (96-108); Creatinine Clr Calc Pharmacy 78.4; Estimated Glomerular Filt Rate > 60; Glucose Random 76 mg/dL (60-115); Potassium 4.5 mmol/L (3.3-5.1); Sodium 135 mmol/L (135-145); Total Protein 6.5 g/dL (6.5-8.0)
[2021-12-11 09:10] LABS: COVID-19 Test Negative (Negative)
[2021-12-11 09:53] VITALS: BP 94/58; PULSE 53; RESP 14; O2SAT 96
== END 2021-12-11 10:11 | disposition home or self-care (01) ==
PROVIDERS: Physician Assistant Medical; Emergency Provider Student in an Organized Health Care Education/Training Program; PCP Family Medicine
DX: K52.9 Noninfective gastroenteritis and colitis, unspecified (principal); R94.31 Abnormal electrocardiogram [ECG] [EKG]; Z20.822 Contact with and (suspected) exposure to COVID-19
CPT/HCPCS: 74176; 80053; 83735; 85025; 87635; 93005; 99284

== ENCOUNTER 2022-02-16 18:11 | Inpatient (IN) | payer OTHER, SELFPAY ==
[2022-02-16 18:16] VITALS: BP 98/30; PULSE 44; RESP 18; TEMP 36.6; O2SAT 98; BMI 21.7
--- NOTE | 2022-02-16 18:19 | ECG_ITS ---
Test Reason : ROBI Blood Pressure : / mmHG Vent. Rate : 041 BPM Atrial Rate : 041 BPM P-R Int : 152 ms QRS Dur : 096 ms QT Int : 490 ms P-R-T Axes : 056 -45 -18 degrees QTc Int : 404 ms Marked sinus bradycardia with sinus arrhythmia Incomplete right bundle branch block Left anterior fascicular block Minimal voltage criteria for LVH, may be normal variant ( R in aVL ) Nonspecific T wave abnormality Abnormal ECG When compared with ECG of 11-DEC-2021 08:30, Incomplete right bundle branch block is now Present Referred By: Generic ED Physician Electronically Signed By:CHHAYA MARROQUIN
--- NOTE | 2022-02-16 18:27 | ED.PSYCH ---
HPI - Psych General Chief Complaint: Psychiatric Symptoms Stated Complaint: Crisis Time Seen by Provider: 02/16/22 22:43 Source: patient Mode of arrival: ambulatory Limitations: no limitations History of Present Illness HPI Narrative: 31-year-old male presents for suicidal ideation without a plan. He is an inpatient bed search Section 12 from the community, he has had several suicide attempts in the past month. MD complaint: suicidal ideation and feels depressed Onset (ago): month(s) Duration: constant History of same: Yes Relieving factors: none Context: significant life stressor Associated psychiatric symptoms: depression and suicidal ideation Associated symptoms: denies other symptoms Treatments prior to arrival: placed on mental health hold If self harm: admits thoughts of self harm, has plan and has acted on plan Related Data Home Medications Medication Instructions Recorded Confirmed methadone 10 mg/5 mL oral solution 86 mg PO DAILY 08/27/20 10/09/21 citalopram 40 mg tablet 1 tab PO DAILY 02/16/22 02/16/22 clonazepam 1 mg tablet 0.5 - 1 tab PO DAILY PRN Anxiety 02/16/22 02/16/22 clonidine HCl 0.2 mg tablet 2 tab PO BEDTIME PRN insomnia 02/16/22 02/16/22 hydroxyzine HCl 50 mg tablet 1 tab PO TID PRN anxiety 02/16/22 02/16/22 midodrine 5 mg tablet 1 tab PO TID 02/16/22 02/16/22 Previous Rx's Medication Instructions Recorded blood pressure monitor (Blood #1 ea 11/01/20 Pressure Kit) Allergies Allergy/AdvReac Type Severity Reaction Status Date / Time No Known Allergies Allergy Verified 10/09/21 12:53 Review of Systems Review of Systems: Constitutional: No Fever, No Chills ENT/Mouth: No Ear Pain, No Nasal Congestion, No sore throat Eyes: No Eye Pain, No Swelling, No Redness Cardiovascular: No Chest Pain, No SOB Respiratory: No Cough, No Sputum, No Dyspnea Gastrointestinal: No Nausea, No Vomiting, No Diarrhea, No Hematochezia, No Melena Genitourinary: No Dysuria, No Urinary Frequency, No Hematuria Musculoskeletal: No Myalgias Skin: No Skin Lesions, No rash Neuro: No Weakness, No Numbness, No Paresthesias, No Dizziness, No Headache Psych: positive Anxiety, positive Depression, positive SI Heme/Lymph: No Lymphadenopathy Endocrine: No Polyuria, No Polydipsia Yes all other systems are reviewed and are negative [facility] Past Medical History Attestation statement: The following information was validated with the patient. Source: old records reviewed Medical History Anemia Anxiety Bradycardia Depression Dysautonomia orthostatic hypotension syndrome Orthostatic dizziness Surgical History History of appendectomy History of endoscopy History of hernia repair Family History Family History Father Afib Mother No problems noted. Social History Social History Household Members: Other Housing: House Do you presently have visiting nurse or other home services: No Alcohol intake: never Patient Tobacco Use Status: Current everyday Tobacco user Tobacco use type: Cigarette Cigarette Packs Per Day: 1 Cigarettes Per Day: 20.0 Years Smoked: 12 +/- e-Cigarette/Vaping Use: Never Used Substance Use Type: Crack/Cocaine, Heroin, Opiates and Painkillers Advance Directives: No Advance Directives Information Provided: No service: No Current occupational status: employed Physical Exam Vital Signs: Vital Signs: Last Vital Signs Temp 97.8 F 02/16/22 18:16 Pulse 44 L 02/16/22 18:16 Resp 18 02/16/22 18:16 BP 98/30 L 02/16/22 18:16 Pulse Ox 98 02/16/22 18:16 O2 Del Method 02/16/22 18:16 BMI result Body Mass Index 21.7 Appearance: Alert. Oriented X3. Moderate emotional distress. Eyes: Pupils equal, round and reactive to light. Sclera nonicteric. ENT: Pharynx normal. Neck: Normal inspection. Neck supple. CVS: Normal heart rate and rhythm. Pulses normal. Respiratory: No respiratory distress. Breath sounds normal. Abdomen: Soft and nontender. Skin: Skin warm and dry. Normal skin color. Normal skin turgor. Extremities: No lower extremity edema. Gait well-balanced well coordinated. Neuro: No motor deficit. No sensory deficit. Cranial nerves 2-12 intact. Course Course Course Narrative: 31-year-old male presents for evaluation for suicidal ideation and depression. Patient has had multiple suicide attempts in the past month. Plan of care is for Section 12 bed search from the community. Sections signed by care team 18:35 physician observation started at this time. MDM - Psych Differential Diagnosis Differential diagnosis: Likely acute psychosis, suicidal ideation, depression and drug-induced psychotic disorder Medical Records Attestation: I reviewed the patient's medical records. Lab Data Attestation: I reviewed the patient's lab results. Result diagrams: 02/16/22 18:29 02/16/22 18: Labs: Lab Results 02/16/22 02/16/22 02/16/22 Range/Units 18:29 18: 18: WBC 5.0 (4.8-10.8) X10*3/uL RBC 4.09 L (4.60-5.80) X10*6/uL Hgb 12.2 L (14.0-18.0) g/dl Hct 36.3 L (42.0-52.0) % MCV 88.8 (80.0-98.0) fL MCH 29.8 (27.0-33.0) pg MCHC 33.6 (31.0-36.0) g/dl RDW 12.4 (11.0-16.0) % Plt Count 221 (160-400) X10*3/uL MPV 9.5 (9.4-12.4) fL Immature Gran % (Auto) 0.0 (0.0-0.4) % Neut % (Auto) 54.3 (45-73) % Lymph % (Auto) 35.5 (20-40) % [place] % (Auto) 7.0 (2-11) % Eos % (Auto) 2.8 (0-4) % Baso % (Auto) 0.4 (0-2) % Lymph # (Auto) 1.8 (1.2-4.9) X10*3/uL [place] # (Auto) 0.4 (0.1-1.2) X10*3/uL Eos # (Auto) 0.1 (0.0-0.4) X10*3/uL Baso # (Auto) 0.0 (0.0-0.2) X10*3/uL Abs Immat Gran (auto) 0.00 (0.00-0.03) X10*3/uL Absolute Neuts (auto) 2.7 (2.0-8.3) x10*3/uL Absolute Nucleated RBC 0.000 (0.0-0.012) X10*3/uL Nucleated RBC % (auto) 0.0 (0.0-0.2) /100WBC Sodium 140 (135-145) mmol/L Potassium 3.9 (3.3-5.1) mmol/L Chloride 103 (96-108) mmol/L Carbon Dioxide 28 (22-29) mmol/L Anion Gap 13 (12-20) BUN 13 (9-16) mg/dL Creatinine 1.08 (0.5-1.4) mg/dL Estim Creat Clear Calc 101.7 Estimated GFR > 60 Random Glucose 157 H D (60-115) mg/dL Calcium 9.3 (8.4-10.2) mg/dL Total Bilirubin 0.5 (0.0-1.0) mg/dL Direct Bilirubin 0.2 (0.0-0.5) mg/dL AST 22 D (5-37) U/L ALT 19 (0-40) U/L Alkaline Phosphatase 87 (39-117) U/L Total Protein 6.4 L (6.5-8.0) g/dL Albumin 4.3 (3.5-5.0) g/dL Urine Color Urine Appearance Urine pH (5.0-8.0) Ur Specific [place] (1.005-1.025) Urine Protein (Neg-Trace) mg/dL Urine Glucose (UA) (Negative) mg/dL Urine Ketones (Negative) mg/dL Urine Blood (Negative) Urine Nitrite (Negative) Ur Leukocyte Esterase (Negative) Urine Opiates Screen (Not Detect) Urine Fentanyl Screen (Not Detect) Ur Barbiturates Screen (Not Detect) Ur Phencyclidine Scrn (Not Detect) Ur Amphetamines Screen (Not Detect) U Benzodiazepines Scrn (Not Detect) Urine Cocaine Screen (Not Detect) U Marijuana (THC) Screen (Not Detect) Ethyl Alcohol < 10 mg/dL COVID-19 (FLAVIO) Negative (Negative) COVID-19 Clin Com See Note 02/16/22 02/16/22 Range/Units 19:51 19:51 WBC (4.8-10.8) X10*3/uL RBC (4.60-5.80) X10*6/uL Hgb (14.0-18.0) g/dl Hct (42.0-52.0) % MCV (80.0-98.0) fL MCH (27.0-33.0) pg MCHC (31.0-36.0) g/dl RDW (11.0-16.0) % Plt Count (160-400) X10*3/uL MPV (9.4-12.4) fL Immature Gran % (Auto) (0.0-0.4) % Neut % (Auto) (45-73) % Lymph % (Auto) (20-40) % [place] % (Auto) (2-11) % Eos % (Auto) (0-4) % Baso % (Auto) (0-2) % Lymph # (Auto) (1.2-4.9) X10*3/uL [place] # (Auto) (0.1-1.2) X10*3/uL Eos # (Auto) (0.0-0.4) X10*3/uL Baso # (Auto) (0.0-0.2) X10*3/uL Abs Immat Gran (auto) (0.00-0.03) X10*3/uL Absolute Neuts (auto) (2.0-8.3) x10*3/uL Absolute Nucleated RBC (0.0-0.012) X10*3/uL Nucleated RBC % (auto) (0.0-0.2) /100WBC Sodium (135-145) mmol/L Potassium (3.3-5.1) mmol/L Chloride (96-108) mmol/L Carbon Dioxide (22-29) mmol/L Anion Gap (12-20) BUN (9-16) mg/dL Creatinine (0.5-1.4) mg/dL Estim Creat Clear Calc Estimated GFR Random Glucose (60-115) mg/dL Calcium (8.4-10.2) mg/dL Total Bilirubin (0.0-1.0) mg/dL Direct Bilirubin (0.0-0.5) mg/dL AST (5-37) U/L ALT (0-40) U/L Alkaline Phosphatase (39-117) U/L Total Protein (6.5-8.0) g/dL Albumin (3.5-5.0) g/dL Urine Color Yellow Urine Appearance Clear Urine pH 6.0 (5.0-8.0) Ur Specific [place] 1.010 (1.005-1.025) Urine Protein Negative (Neg-Trace) mg/dL Urine Glucose (UA) Negative (Negative) mg/dL Urine Ketones Negative (Negative) mg/dL Urine Blood Negative (Negative) Urine Nitrite Negative (Negative) Ur Leukocyte Esterase Negative (Negative) Urine Opiates Screen Not Detected (Not Detect) Urine Fentanyl Screen Not Detected (Not Detect) Ur Barbiturates Screen Not Detected (Not Detect) Ur Phencyclidine Scrn Not Detected (Not Detect) Ur Amphetamines Screen Not Detected (Not Detect) U Benzodiazepines Scrn POSITIVE H (Not Detect) Urine Cocaine Screen Not Detected (Not Detect) U Marijuana (THC) Screen Not Detected (Not Detect) Ethyl Alcohol mg/dL COVID-19 (FLAVIO) (Negative) COVID-19 Clin Com ECG Data Attestation: I personally reviewed and interpreted this ECG as follows: ECG interpretation date: 02/16/22 ECG interpretation time: 18:22 Interpretation: Vent. Rate : 041 BPM ? ? Atrial Rate : 041 BPM ?? P-R Int : 152 ms? QRS Dur : 096 ms ? ? QT Int : 490 ms ? ? ? P-R-T Axes : 056 -45 -18 degrees ?? QTc Int : 404 ms ? Marked sinus bradycardia with sinus arrhythmia Incomplete right bundle branch block Left anterior fascicular block Minimal voltage criteria for LVH, may be normal variant ( R in aVL ) Nonspecific T wave abnormality Abnormal ECG When compared with ECG of 11-DEC-2021 08:30, Incomplete right bundle branch block is now Present Discharge Plan Discharge Clinical Impression: Suicidal ideation, Depression Patient Disposition: Still a Patient Prescriptions: No Action citalopram 40 mg tablet 1 tab PO DAILY clonazepam 1 mg tablet 0.5 - 1 tab PO DAILY PRN (Reason: Anxiety) midodrine 5 mg tablet 1 tab PO TID hydroxyzine HCl 50 mg tablet 1 tab PO TID PRN (Reason: anxiety) clonidine HCl 0.2 mg tablet 2 tab PO BEDTIME PRN (Reason: insomnia) methadone 10 mg/5 mL solution 86 mg PO DAILY (DME) blood pressure monitor [Blood Pressure Kit] Kit See Rx Instructions .ROUTE .MEDSUPPLY Qty: 1 0RF Rx Instructions: Take BP once daily and if symptoms, keep a log
[2022-02-16 18:34] LABS: MANUAL DIFF FLAG NO
[2022-02-16 18:36] LABS: Basophils Percent Auto 0.4 % (0-2); Eosinophils Absolute Auto 0.1 X10*3/uL (0.0-0.4); Eosinophils Percent Auto 2.8 % (0-4); Hematocrit 36.3 % (42.0-52.0); Hemoglobin 12.2 g/dl (14.0-18.0); Lymphocytes Absolute Auto 1.8 X10*3/uL (1.2-4.9); Lymphocytes Percent Auto 35.5 % (20-40); Mean Corpuscular HGB Conc 33.6 g/dl (31.0-36.0); Mean Corpuscular Hemoglobin 29.8 pg (27.0-33.0); Mean Corpuscular Volume 88.8 fL (80.0-98.0); Mean Platelet Volume 9.5 fL (9.4-12.4); Monocytes Absolute Auto 0.4 X10*3/uL (0.1-1.2); Neutrophils Absolute Auto 2.7 x10*3/uL (2.0-8.3); Neutrophils Percent Auto 54.3 % (45-73); Platelet Count 221 X10*3/uL (160-400); Red Blood Count 4.09 X10*6/uL (4.60-5.80); Red Cell Distribution Width 12.4 % (11.0-16.0)
--- NOTE | 2022-02-16 18:50 | PC.NURSE ---
traveler changer with security at this time. belongings list completed
[2022-02-16 18:59] LABS: Alanine Aminotransferase 19 U/L (0-40); Albumin Level 4.3 g/dL (3.5-5.0); Alkaline Phosphatase 87 U/L (39-117); Anion Gap 13 (12-20); Aspartate Amino Transferase 22 U/L (5-37); Bilirubin Direct 0.2 mg/dL (0.0-0.5); Bilirubin Total 0.5 mg/dL (0.0-1.0); Blood Urea Nitrogen 13 mg/dL (9-16); Calcium 9.3 mg/dL (8.4-10.2); Carbon Dioxide 28 mmol/L (22-29); Chloride 103 mmol/L (96-108); Creatinine Clr Calc Pharmacy 101.7; Estimated Glomerular Filt Rate > 60; Ethanol < 10 mg/dL; Glucose Random 157 mg/dL (60-115); Potassium 3.9 mmol/L (3.3-5.1); Sodium 140 mmol/L (135-145); Total Protein 6.4 g/dL (6.5-8.0)
[2022-02-16 19:02] LABS: COVID-19 Test Negative (Negative); IDNOW Serial# 16C4AD1C
[2022-02-16 20:04] LABS: Appearance Urine Clear; Color Urine Yellow; Glucose Urine UA Negative (Negative); Leukocyte Esterase Urine Negative (Negative); Nitrite Urine Negative (Negative); Urine Blood Negative (Negative); Urine Ketones Negative (Negative); Urine Protein Negative (Neg-Trace)
[2022-02-16 20:13] LABS: Amphetamine Screen Urine Not Detected (Not Detect); Barbiturates, Urine Not Detected (Not Detect); Benzodiazepines Screen Urine POSITIVE (Not Detect); Cannabinoid Screen Urine Not Detected (Not Detect); Cocaine Screen Urine Not Detected (Not Detect); Fentanyl, urine Not Detected (Not Detect); Opiate Screen Urine Not Detected (Not Detect); Phencyclidine Screen Urine Not Detected (Not Detect)
--- NOTE | 2022-02-16 22:07 | MHC.CARE ---
Pt was evaluated by JENNY in the community and arrived to the ED as an inpatient psych bedsearch.
[2022-02-16] MEDS: clonazePAM 1 MG TABLET PO (23:02)
[2022-02-16] MEDS: Midodrine HCl 5 MG TABLET PO (23:02)
[2022-02-17 03:43] VITALS: BP 100/32; PULSE 52; RESP 16; TEMP 36.6; O2SAT 98
--- NOTE | 2022-02-17 06:20 | PC.NURSE ---
Patient slept through the night, no distress observed/reported, medication complaint, behavior non concerning, appetite adequate, disposition per [facility] is section 12 inpatient bed search, will continue to monitor.
[2022-02-17 08:51] VITALS: BP 92/58; PULSE 58; RESP 18; TEMP 37.2; O2SAT 100
--- NOTE | 2022-02-17 10:33 | HE.PHANOTE ---
Methadone Verification Pharmacy has received the methadone verification form from Jacklyn. Patient last dose methasone 86 mg from [facility]. Patient received 6 takes home bottles on 02/13/2022. Jacklyn spoke with Kareen. Patient reported his last dose was 02/16/2022. Karla Amos, EugenioD
[2022-02-17] MEDS: hydrOXYzine HCL 50 MG TABLET PO (10:41)
[2022-02-17] MEDS: Escitalopram Oxalate 20 MG TABLET PO (10:41)
[2022-02-17] MEDS: Midodrine HCl 5 MG TABLET PO ×3 (10:41→20:22)
[2022-02-17] MEDS: methADONE HCl 20 MG/2 ML ORAL.CONC 85 MG PO (10:42)
[2022-02-17] MEDS: Nicotine 21 MG PATCH.TD24 TRANSDERMA (12:30)
[2022-02-17 12:53] VITALS: BP 106/64; PULSE 59; RESP 16; TEMP 36.6; O2SAT 97
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
[2022-02-17] MEDS: clonazePAM 1 MG TABLET PO (16:28)
[2022-02-17 16:30] VITALS: BP 108/65; PULSE 48; RESP 16; O2SAT 96
[2022-02-17 20:20] VITALS: BP 97/59; PULSE 41; RESP 16; TEMP 36.6; O2SAT 98
[2022-02-18 08:51] LABS: Estimated Average Glucose 94 mg/dL; Hemoglobin A1c % 4.9 %
[2022-02-18] MEDS: Midodrine HCl 5 MG TABLET PO ×2 (08:59→14:56)
[2022-02-18] MEDS: Escitalopram Oxalate 20 MG TABLET PO (08:59)
[2022-02-18] MEDS: methADONE HCl 20 MG/2 ML ORAL.CONC 85 MG PO (09:00)
[2022-02-18 09:04] VITALS: BP 98/54; PULSE 71; TEMP 36.7; O2SAT 97
[2022-02-18 09:13] LABS: Alanine Aminotransferase 19 U/L (0-40); Albumin Level 4.2 g/dL (3.5-5.0); Alkaline Phosphatase 86 U/L (39-117); Anion Gap 14 (12-20); Aspartate Amino Transferase 17 U/L (5-37); Bilirubin Total 0.2 mg/dL (0.0-1.0); Blood Urea Nitrogen 17 mg/dL (9-16); Calcium 9.4 mg/dL (8.4-10.2); Carbon Dioxide 28 mmol/L (22-29); Chloride 105 mmol/L (96-108); Cholesterol 150 mg/dL; Creatinine Clr Calc Pharmacy 103.6; Estimated Glomerular Filt Rate > 60; Glucose Fasting 79 mg/dL (60-99); HDL Cholesterol 27 mg/dL; LDL Cholesterol Calculated 108 mg/dl; Sodium 143 mmol/L (135-145); Total Protein 6.3 g/dL (6.5-8.0); Triglycerides 77 mg/dL
[2022-02-18 09:33] LABS: Thyroid Stimulating Hormone 0.35 uIU/mL (0.32-4.0)
--- NOTE | 2022-02-18 10:00 | P.PNPSI_ITS ---
Subjective Subjective Date of Service: 02/18/22 Reason For Visit: SI Subjective Notes: Conditional Voluntary Interim History: Pt met with this service writer and GEE Flynn. Pt reports not having suicidal ideation plan or intent but has struggled with depression for over 13 years. He reports multiple medication trials, feels citalopram most effective. At this point does not feel he needs changes in meds- but we did discuss intermediate considering TMS or ECT if recurrent suicidal ideation. He is looking forward to reconnect with new therapist. Makes more sense that he is discharge tomorrow and attend first therapy session. No behavioral concerns. Pt appropriate and working with primary treatment team. Medication Compliance: Yes Side effects from medications: No Attending Groups: Intermittent Review of Systems Review of Systems Constitutional: No Fever, No Chills ENT/Mouth: No Ear Pain, No Nasal Congestion, No sore throat Eyes: No Eye Pain, No Swelling, No Redness Cardiovascular: No Chest Pain, No SOB Respiratory: No Cough, No Sputum, No Dyspnea Gastrointestinal: No Nausea, No Vomiting, No Diarrhea, No Hematochezia, No Melena Genitourinary: No Dysuria, No Urinary Frequency, No Hematuria Musculoskeletal: No Myalgias Skin: No Skin Lesions, No rash Neuro: No Weakness, No Numbness, No Paresthesias, No Dizziness, No Headache Psych: positive Anxiety, positive Depression, positive SI Heme/Lymph: No Lymphadenopathy Endocrine: No Polyuria, No Polydipsia Yes all other systems are reviewed and are negative Constitutional: Reports no additional constitutional complaints Eyes: Reports no additional eye complaints Reports system reviewed and no additional complaints, except as documented Cardiovascular: Denies chest pain, Denies chest pain at rest, Denies irregular heart rhythm and Denies lightheadedness Respiratory: Denies no additional respiratory complaints and Denies cough Gastrointestinal: Denies no additional gastrointestinal complaints Musculoskeletal: Reports no additional musculoskeletal complaints Mental Status Exam Mental Status Exam Narrative: Appearance: casually groomed, fair hygiene in NAD Behavior:cooperative psychomotor: no agitation or retardation noted Speech:clear, normal rate/rhythm, volume, spontaneous Thought process:linear Thought content: no signs of psychosis, future oriented, not suicidal anymore Mood: better Affect: congruent SI:denies HI:denies VH/AH: none Delusions:none Insight/judgment:fair x 2. Memory/cog: alert, oriented x 3. grossly intact to conversational testing. Diagnostics Vital Signs (24Hr): Vital Signs - 24 hr 02/18/22 09:04 02/18/22 20:39 Temperature 98.1 F 97.9 F Pulse Rate 71 57 Blood Pressure 98/54 L 124/80 Pulse Oximetry 97 100 Oxygen Delivery Method Room Air Room Air BMI result Body Mass Index 21.7 Labs Results: 02/16/22 18:29 02/18/22 07:46 Labs: Laboratory Results - last 48 hr 02/18/22 02/18/22 02/18/22 07:46 07:46 07:46 Sodium 143 Potassium 4.0 Chloride 105 Carbon Dioxide 28 Anion Gap 14 BUN 17 H Creatinine 1.06 Estim Creat Clear Calc 103.6 Estimated GFR > 60 Fasting Glucose 79 Estimat Average Glucose 94 Hemoglobin A1c % 4.9 Calcium 9.4 Total Bilirubin 0.2 AST 17 ALT 19 Alkaline Phosphatase 86 Total Protein 6.3 L Albumin 4.2 Triglycerides 77 Cholesterol 150 LDL Cholesterol, Calc 108 HDL Cholesterol 27 Vitamin B12 273 Folate 3.7 L TSH 0.35 Medications Medications Current Medications Acetaminophen (Acetaminophen 325 Mg Tablet) 650 mg PO Q6H PRN PRN Reason: Headache/Pain Mild Scale (1-3) Al Hydroxide/Mg Hydroxide (Magnesium Hydrox/Alum Hydrox 30 Ml Oral.Susp) 30 ml PO Q6H PRN PRN Reason: Heartburn/Nausea Clonazepam (Clonazepam 1 Mg Tablet) 1 mg PO DAILY PRN PRN Reason: Anxiety Last Admin: 02/18/22 14:56 Dose: 1 mg Clonidine HCl (Clonidine Hcl 0.2 Mg Tablet) 0.4 mg PO BEDTIME PRN; Protocol PRN Reason: insomnia Escitalopram Oxalate (Escitalopram Oxalate 20 Mg Tablet) 20 mg PO DAILY [facility] Last Admin: 02/18/22 08:59 Dose: 20 mg Hydroxyzine HCl (Hydroxyzine Hcl 50 Mg Tablet) 50 mg PO TID PRN PRN Reason: anxiety Last Admin: 02/17/22 10:41 Dose: 50 mg Hydroxyzine HCl (Hydroxyzine Hcl 25 Mg Tablet) 25 mg PO Q6H PRN PRN Reason: Anxiety Magnesium Hydroxide (Milk Of Magnesia 30 Ml Oral.Susp) 30 ml PO DAILY PRN PRN Reason: Constipation Methadone HCl (Methadone Hcl 20 Mg/2 Ml Oral.Conc) 85 mg PO DAILY [facility] Last Admin: 02/18/22 09:00 Dose: 85 mg Midodrine (Midodrine Hcl 5 Mg Tablet) 5 mg PO TID [facility] Last Admin: 02/18/22 20:41 Dose: Not Given Nicotine (Nicotine 21 Mg Patch.Td24) 21 mg TRANSDERMA DAILY [facility] Last Admin: 02/18/22 10:11 Dose: 21 mg Trazodone HCl (Trazodone Hcl 50 Mg Tablet) 50 mg PO BEDTIME PRN PRN Reason: Insomnia Allergies Allergies Allergy/AdvReac Type Severity Reaction Status Date / Time No Known Allergies Allergy Verified 10/09/21 12:53 Assessment & Plan Assessment & Plan (1) MDD (major depressive disorder), recurrent episode, moderate: Status: Acute Code(s): F33.1 - Major depressive disorder, recurrent, moderate (2) Opioid use disorder, mild, in sustained remission, abuse: Status: Acute Code(s): F11.11 - Opioid abuse, in remission Plan Mr. Ku is a 31 year-old male with hx of MDD, opioid use disorder in sustain remission who self presented to [facility] [place] [facility] ED reporting increased depression, SI with plan to OD on clonidine in context of recent break up with GF of 3 years. GF also has restraining order towards her which he denies having broken her windshield. Pt on unit denies suicidal ideation, reports feeling less overwhelmed but when things happened he reports, it was too quick for him to take it all in. We discussed risks, benefits and alternative treatment options. He agrees to continue celexa, clonazepam- prescribed by OP providers. PLAN 1. Admit to M3, CV, 15 minutes checks for safety 2. continue current medications 3. Obtain collateral information 4. Aftercare planning. 02/18 continue current medications, d/c tomorrow. I spent minutes with the patient and/or on the patient floor today, greater than?50% of which was spent counseling/coordinating care. Reason for contiued inpatient stay Substantial Risk for: stable for discharge
[2022-02-18 10:07] LABS: Folate 3.7 ng/mL (> or = 4.0); Vitamin B12 273 pg/mL (200-900)
[2022-02-18] MEDS: Nicotine 21 MG PATCH.TD24 TRANSDERMA (10:11)
[2022-02-18] MEDS: clonazePAM 1 MG TABLET PO (14:56)
--- NOTE | 2022-02-18 15:08 | MHC.CLN ---
NUTRITION CONSULT CONSULT FOR REPORTED 30# WEIGHT LOSS X 1 YEAR. REPORTS THAT CURRENT INTAKE IS GOOD AND EATING 3 MEALS PER DAY. ADVISED THAT CAN HAVE SNACKS ON UNIT AND STAFF EXPLAINED SNACK AVAILABILITY TO HIM. DOES NOT WANT ENSURE SUPPLEMENT. REPORTED THAT WEIGHT LOSS X ONE YEAR DUE TO A PERIOD OF HOMELESSNESS AND IS USED TO EATING ONE MEAL PER DAY. EXPRESSED CONCERNS WITH MONEY AND THAT WOULD CHOSE CIGARETTES OVER FOOD, BMI=21.7 AND IS 90% OF IBW. NO PHYSICAL SIGNS OF MALNUTRITION. MONITOR INTAKE. NO ADDITIONAL NUTRITION INTERVENTIONS.
[2022-02-18 20:39] VITALS: BP 124/80; PULSE 57; TEMP 36.6; O2SAT 100
--- NOTE | 2022-02-18 21:04 | PC.NURSE ---
hold midodrine 124/80, 57. EToni Sosa aware.
--- NOTE | 2022-02-19 07:03 | P.DS_ITS ---
DS: Providers Provider Date of Service: 02/19/22 Date of admission: 02/17/22 12:28 Primary care physician: May Khan MD DS: Diagnosis Discharge Diagnosis (1) MDD (major depressive disorder), recurrent episode, moderate: Status: Acute (2) Opioid use disorder, mild, in sustained remission, abuse: Status: Acute DS: Medications Discharge Medications Home Medications: Home Medications Medication Instructions Recorded Confirmed methadone 10 mg/5 mL oral solution 86 mg PO DAILY 08/27/20 02/17/22 citalopram 40 mg tablet 1 tab PO DAILY 02/16/22 02/16/22 clonazepam 1 mg tablet 0.5 - 1 tab PO DAILY PRN Anxiety 02/16/22 02/16/22 clonidine HCl 0.2 mg tablet 2 tab PO BEDTIME PRN insomnia 02/16/22 02/16/22 hydroxyzine HCl 50 mg tablet 1 tab PO TID PRN anxiety 02/16/22 02/16/22 midodrine 5 mg tablet 1 tab PO TID 02/16/22 02/16/22 Previous Rx's Medication Instructions Recorded blood pressure monitor (Blood #1 ea 11/01/20 Pressure Kit) Mental Status Exam Mental Status Exam Narrative: Appearance: casually groomed, fair hygiene in NAD Behavior:cooperative psychomotor: no agitation or retardation noted Speech:clear, normal rate/rhythm, volume, spontaneous Thought process:linear Thought content: no signs of psychosis, future oriented, not suicidal anymore Mood: better Affect: congruent SI:denies HI:denies VH/AH: none Delusions:none Insight/judgment:fair x 2. Memory/cog: alert, oriented x 3. grossly intact to conversational testing. Data Data Completed and Pending Completed studies during hospitalization [Text1]: 02/16/22 02/16/22 02/16/22 18:29 18:29 18:29 WBC 5.0 RBC 4.09 L Hgb 12.2 L Hct 36.3 L MCV 88.8 MCH 29.8 MCHC 33.6 RDW 12.4 Plt Count 221 MPV 9.5 Immature Gran % (Auto) 0.0 Neut % (Auto) 54.3 Lymph % (Auto) 35.5 [place] % (Auto) 7.0 Eos % (Auto) 2.8 Baso % (Auto) 0.4 Lymph # (Auto) 1.8 [place] # (Auto) 0.4 Eos # (Auto) 0.1 Baso # (Auto) 0.0 Abs Immat Gran (auto) 0.00 Absolute Neuts (auto) 2.7 Absolute Nucleated RBC 0.000 Nucleated RBC % (auto) 0.0 Sodium 140 Potassium 3.9 Chloride 103 Carbon Dioxide 28 Anion Gap 13 BUN 13 Creatinine 1.08 Estim Creat Clear Calc 101.7 Estimated GFR > 60 Random Glucose 157 H D Fasting Glucose Estimat Average Glucose Hemoglobin A1c % Calcium 9.3 Total Bilirubin 0.5 Direct Bilirubin 0.2 AST 22 D ALT 19 Alkaline Phosphatase 87 Total Protein 6.4 L Albumin 4.3 Triglycerides Cholesterol LDL Cholesterol, Calc HDL Cholesterol Vitamin B12 Folate TSH Urine Color Urine Appearance Urine pH Ur Specific [place] Urine Protein Urine Glucose (UA) Urine Ketones Urine Blood Urine Nitrite Ur Leukocyte Esterase Urine Opiates Screen Urine Fentanyl Screen Ur Barbiturates Screen Ur Phencyclidine Scrn Ur Amphetamines Screen U Benzodiazepines Scrn Urine Cocaine Screen U Marijuana (THC) Screen Ethyl Alcohol < 10 COVID-19 (FLAVIO) Negative COVID-19 Clin Com See Note 02/16/22 02/16/22 02/18/22 19:51 19:51 07:46 WBC RBC Hgb Hct MCV MCH MCHC RDW Plt Count MPV Immature Gran % (Auto) Neut % (Auto) Lymph % (Auto) [place] % (Auto) Eos % (Auto) Baso % (Auto) Lymph # (Auto) [place] # (Auto) Eos # (Auto) Baso # (Auto) Abs Immat Gran (auto) Absolute Neuts (auto) Absolute Nucleated RBC Nucleated RBC % (auto) Sodium 143 Potassium 4.0 Chloride 105 Carbon Dioxide 28 Anion Gap 14 BUN 17 H Creatinine 1.06 Estim Creat Clear Calc 103.6 Estimated GFR > 60 Random Glucose Fasting Glucose 79 Estimat Average Glucose Hemoglobin A1c % Calcium 9.4 Total Bilirubin 0.2 Direct Bilirubin AST 17 ALT 19 Alkaline Phosphatase 86 Total Protein 6.3 L Albumin 4.2 Triglycerides 77 Cholesterol 150 LDL Cholesterol, Calc 108 HDL Cholesterol 27 Vitamin B12 Folate TSH 0.35 Urine Color Yellow Urine Appearance Clear Urine pH 6.0 Ur Specific [place] 1.010 Urine Protein Negative Urine Glucose (UA) Negative Urine Ketones Negative Urine Blood Negative Urine Nitrite Negative Ur Leukocyte Esterase Negative Urine Opiates Screen Not Detected Urine Fentanyl Screen Not Detected Ur Barbiturates Screen Not Detected Ur Phencyclidine Scrn Not Detected Ur Amphetamines Screen Not Detected U Benzodiazepines Scrn POSITIVE H Urine Cocaine Screen Not Detected U Marijuana (THC) Screen Not Detected Ethyl Alcohol COVID-19 (FLAVIO) COVID-19 Clin Com 02/18/22 02/18/22 07:46 07:46 WBC RBC Hgb Hct MCV MCH MCHC RDW Plt Count MPV Immature Gran % (Auto) Neut % (Auto) Lymph % (Auto) [place] % (Auto) Eos % (Auto) Baso % (Auto) Lymph # (Auto) [place] # (Auto) Eos # (Auto) Baso # (Auto) Abs Immat Gran (auto) Absolute Neuts (auto) Absolute Nucleated RBC Nucleated RBC % (auto) Sodium Potassium Chloride Carbon Dioxide Anion Gap BUN Creatinine Estim Creat Clear Calc Estimated GFR Random Glucose Fasting Glucose Estimat Average Glucose 94 Hemoglobin A1c % 4.9 Calcium Total Bilirubin Direct Bilirubin AST ALT Alkaline Phosphatase Total Protein Albumin Triglycerides Cholesterol LDL Cholesterol, Calc HDL Cholesterol Vitamin B12 273 Folate 3.7 L TSH Urine Color Urine Appearance Urine pH Ur Specific [place] Urine Protein Urine Glucose (UA) Urine Ketones Urine Blood Urine Nitrite Ur Leukocyte Esterase Urine Opiates Screen Urine Fentanyl Screen Ur Barbiturates Screen Ur Phencyclidine Scrn Ur Amphetamines Screen U Benzodiazepines Scrn Urine Cocaine Screen U Marijuana (THC) Screen Ethyl Alcohol COVID-19 (FLAVIO) COVID-19 Clin Com DS: Summary Hospital Course Hospital Course: HPI: Subjective Notes: [place] Warning and Conditional Voluntary Narrative: Mr. Ku is a 31 year-old male with hx of MDD, opioid use in remission on MAT, who self presented to [facility] ED reporting increased depression SI, recent suicide attempt via OD on clonidine in context of break up with GF of 3 years who later accused pt of breaking [employer]shield and placed restraining order. Utox positive for benzos which he is prescribed. On the unit, pt presents as calm and cooperative. He reports things happened too fast, referring to breaking up with GF and then learning that she had gone to court to put restraining order against him. Pt reports few days ago had impulsive OD on clonidine but was dissapointed that he woke up next morning. Today, pt denies suicidal ideation. He reports he was overwhelmed at the time but as time has gone by he reports it's not worth dying for her. Pt presents as future oriented in that he worried that GF had used his credit card and he is not able to pay it and it will affect his credit. He reports sleeping and eating well. He denies VH/AH. He recently connected with OP psych providers through [facility]. Past Psychiatric History: Inpatient: multiple in the past but unknown last one OP: [facility] Past trials: citalopram, clonazepam HOSPITAL COURSE On the unit, pt was admitted on a CV and placed on 15 minutes checks for safety. Pt presented as calm, cooperative. He reported long hx of depression, intermittent suicidal ideation. He reports several medications trials and thinks most effective have been celexa. He denied suicidal or homicidal ideation. He wanted to reconnect with services including therapy. He was sleeping and eating well. No behavioral concerns. Family denies safety concerns at time of discharge. Given narcan on discharged although he has been in remission for over a year. Time spent discussing smoking cessation with patient: 3 to 10 minutes Status at Discharge Cognitive/behavioral status at discharge: Pt with brighter, no labile affect. No SI/HI. No signs of psychosis, or delusional content. Pt future oriented and increase insight into problems with GF and how to overcome them. No signs of aggression towards self or others. Functional status at discharge: independent ambulation Overall status at discharge: patient is progressing back to baseline Time Spent with Patient Time attestation: Total time spent providing and/or coordinating discharge services: Time spent: Less than 30 minutes Discharge Plan Discharge Patient Disposition: Home Health Service Discharge Diagnosis: MDD, recurrent, moderate Referrals: Meme Marino (Therapy) [Other] - 02/19/22 10:00 am (Telehealth Appointment) Luda Paige (Psychiatry) [Other] - 03/05/22 12:30 pm (Telehealth Appointment) May Khan MD [Primary Care Provider] - 1 Week (PCP office notified for appointment, PCP will call patient back with appointment.) Discharge Medications: Continued citalopram 40 mg tablet 1 tab PO DAILY clonazepam 1 mg tablet 0.5 - 1 tab PO DAILY PRN (Reason: Anxiety) hydroxyzine HCl 50 mg tablet 1 tab PO TID PRN (Reason: anxiety) clonidine HCl 0.2 mg tablet 2 tab PO BEDTIME PRN (Reason: insomnia) methadone 10 mg/5 mL solution 86 mg PO DAILY (DME) blood pressure monitor [Blood Pressure Kit] Kit See Rx Instructions .ROUTE .MEDSUPPLY Qty: 1 0RF Rx Instructions: Take BP once daily and if symptoms, keep a log No Action midodrine 5 mg tablet 5 mg PO TID Qty: 90 1RF Discharge Orders: Discharge Order (Routine); Ordered 02/19/22 Ordered By: Leeanna Josue Diet: Regular diet Activity on Discharge: As tolerated Stand Alone Forms: Patient Portal Discharge page, Community Support Care Plan Goals: 1. Maintain mood 2. No SI/HI Health Concerns: Follow up with PCP for regular care. Plan of Treatment: 1. Take medications as prescribed 2. Go to nearest ED or call 911 in event of emergency Assessment: Pt with brighter, non labile. No SI/HI. No VH/AH. Sleeping and eating well. Looking forward to return home, see mother, start therapy. No signs of aggression towards self or others. Discharge Date/Time: 02/19/22 09:55
[2022-02-19 08:06] VITALS: BP 100/66; PULSE 68; RESP 16; TEMP 36.7; O2SAT 98
[2022-02-19] MEDS: Midodrine HCl 5 MG TABLET PO (08:20)
[2022-02-19] MEDS: methADONE HCl 20 MG/2 ML ORAL.CONC 85 MG PO (08:20)
[2022-02-19] MEDS: Escitalopram Oxalate 20 MG TABLET PO (08:20)
== END 2022-02-19 09:55 | disposition home health service (06) | DRG 751 ==
LOC: HO.ED 02-17 12:34 → HO.PADLT16 02-17 12:35
PROVIDERS: Social Worker; Admitting Provider Psychiatry & Neurology Psychiatry; Emergency Provider Internal Medicine; PCP Family Medicine; Visit Provider Psychiatry & Neurology Psychiatry
DX: F33.1 Major depressive disorder, recurrent, moderate (principal); R45.851 Suicidal ideations; F11.20 Opioid dependence, uncomplicated; F17.210 Nicotine dependence, cigarettes, uncomplicated; Z71.6 Tobacco abuse counseling; Z20.822 Contact with and (suspected) exposure to COVID-19; Z79.899 Other long term (current) drug therapy
CPT/HCPCS: 36415; 80053; 80061; 80307; 81003; 82077; 82248; 82607; 82746; 83036; 84443; 85025; 87635; 93005; 99285